=== PATIENT | male | born 1985 | race Caucasian/White ===

== ENCOUNTER 2016-09-12 02:01 | Emergency (ER) | payer OTHER ==
[2016-09-12 02:25] VITALS: BP 159/106
--- NOTE | 2016-09-15 09:57 | EDM.PDOC ---
ED HPI GENERAL MEDICAL PROBLEM - General Chief Complaint: General Stated Complaint: DIARRHEA Time Seen by Provider: 09/12/16 02:40 Source of Information: Reports: Patient History Limitations: Reports: No Limitations - History of Present Illness INITIAL COMMENTS - FREE TEXT/NARRATIVE: This is a 31yo M here for abdominal discomfort. He states this issue has been ongoing for months and maybe longer than a year. He states the pain is worse when he eats certain foods. He does notice that fatty foods do make the symptoms worse. He states he has had a prior workup 3 years ago but was not told of any findings so he assumed things were ok. He denies any fever or other issues. He has had a prior episode of jaundice after given pain medications from a previous hospital stay but he did not come in and when he stopped his opiods his jaundice resolved. Onset: Sudden Duration: Hour(s):, Colic Location: Reports: Abdomen Severity: Moderate Improves with: Reports: None Worsens with: Reports: None Associated Symptoms: Reports: Loss of Appetite Abdominal Pain Score (Numeric/FACES): 4 - Related Data Allergies Allergy/AdvReac Type Severity Reaction Status Date / Time No Known Allergies Allergy Verified 01/31/16 05:48 Home Meds: Home Meds NK [No Known Home Meds] 01/31/16 [History] Past Medical History HEENT History: Reports: Impaired Vision Psychiatric History: Reports: Anxiety Endocrine/Metabolic History: Reports: Other (See Below) Other Endocrine/Metabolic History: non-alcohol fatty liver Dx. - Infectious Disease History Infectious Disease History: Reports: Chicken Pox - Past Surgical History Respiratory Surgical History: Reports: Other (See Below) Male Surgical History: Reports: Kidney Stone Extraction, Lithotripsy (ESWL) Social & Family History - Family History Family Medical History: Noncontributory - Tobacco Use Smoking Status *Q: Current Every Day Smoker Years of Tobacco use: 8 Packs/Tins Daily: 0.5 Used Tobacco, but Quit: No Second Hand Smoke Exposure: No - Caffeine Use Caffeine Use: Reports: Energy Drinks - Recreational Drug Use Recreational Drug Use: No ED ROS GENERAL - Review of Systems Review Of Systems: ROS reveals no pertinent complaints other than HPI. ED EXAM, GI/ABD - Physical Exam Exam: See Below Exam Limited By: No Limitations General Appearance: Alert, WD/WN, Mild Distress Eyes: Bilateral: EOMI Ears: Normal External Exam Nose: Normal Inspection Throat/Mouth: Normal Inspection Head: Atraumatic Neck: Normal Inspection Respiratory/Chest: No Respiratory Distress, Lungs Clear, Normal Breath Sounds Cardiovascular: Normal Peripheral Pulses, Regular Rate, Rhythm GI/Abdominal Exam: Normal Bowel Sounds, Soft, Tender (RUQ) Back Exam: Normal Inspection Extremities: Normal Inspection Neurological: Alert, Oriented, CN II-XII Intact Psychiatric: Normal Affect, Normal Mood Skin Exam: Warm, Dry, Intact Course - Vital Signs Last Recorded V/S: Last Vital Signs Temp 36.6 C 09/12/16 02:28 Pulse 90 09/12/16 02:28 Resp 16 09/12/16 02:28 BP 159/106 H 09/12/16 02:28 Pulse Ox 98 09/12/16 02:28 Departure - Departure Time of Disposition: 03:30 Disposition: Home, Self-Care 01 Condition: Good Clinical Impression: Cholecystitis - Discharge Information Instructions: Cholecystitis, [id number] Referrals: PCP,None [Primary Care Provider] - Forms: ED Department Discharge Additional Instructions: Eat a low fat diet, as tolerated, with plenty of fresh fruits and vegetables. Follow up with regular provider as directed. Call with any questions. - Problem List Review Problem List Initiated/Reviewed/Updated: Yes - Assessment/Plan Plan: Counseled patient on the need for further workup and studies. Patient understands the need and will f/u per patient and . They have decided to f/ u at [facility] for workup. Discussed if any changes to come to clinic any time for scheduling of Cholecystitis workup.
== END 2016-09-12 03:20 | disposition home or self-care (01) ==
LOC: LB.ED 02:01
DX: K81.9 Cholecystitis, unspecified (principal); H54.7 Unspecified visual loss; F17.210 Nicotine dependence, cigarettes, uncomplicated
CPT/HCPCS: 99283

== ENCOUNTER 2017-01-24 14:25 | Emergency (ER) | payer OTHER ==
[2017-01-24] MEDS ORDERED: Ketorolac 10 MG Tab ONE ×2 (15:20→16:33)
[2017-01-24] MEDS ORDERED: Acetaminophen/HYDROcodone 325-5 MG Tab ONE (15:20)
[2017-01-24] MEDS ORDERED: Ketorolac 30 MG/ML SDV ONE ×2 (15:25→15:27)
[2017-01-24] MEDS ORDERED: HYDROmorphone 2 MG/ML Syringe ONE ×2 (15:25→15:28)
--- NOTE | 2017-01-24 15:39 | EDM.PDOC ---
ED HPI GENERAL MEDICAL PROBLEM - General Stated Complaint: poss. kidney stone Time Seen by Provider: 01/24/17 15:00 Source of Information: Reports: Patient History Limitations: Reports: No Limitations - History of Present Illness INITIAL COMMENTS - FREE TEXT/NARRATIVE: According to patient he claims he has been having sudden onset of lower abdomen pain since afternoon today. Pt claims that pain radiates into his groin and testicles. Rates his pain 9/10 which is waxing and waning type and does feel dizzy when the pain gets intense. He has had kidney stones when he was in service several years ago. No fever or chills. He has been urinating frequently and feels an urge to urinate all the time. no nausea or vomiting. No abdominal distension. no diarrhea. no heart sierra. No diarrhea. Onset: Today Onset Date: 01/24/17 Onset Time: 12:00 Duration: Getting Worse, Waxing/Waning Location: Reports: Abdomen Severity: Severe Improves with: Reports: None Worsens with: Reports: None Associated Symptoms: Denies: Confusion, Chest Pain, Cough, Fever/Chills, Nausea/ Vomiting, Rash, Seizure, Shortness of Breath, Syncope, Weakness - Related Data Allergies Allergy/AdvReac Type Severity Reaction Status Date / Time No Known Allergies Allergy Verified 01/31/16 05:48 Home Meds: Home Meds NK [No Known Home Meds] 01/31/16 [History] Past Medical History HEENT History: Reports: Impaired Vision Psychiatric History: Reports: Anxiety Endocrine/Metabolic History: Reports: Other (See Below) Other Endocrine/Metabolic History: non-alcohol fatty liver Dx. - Infectious Disease History Infectious Disease History: Reports: Chicken Pox - Past Surgical History Respiratory Surgical History: Reports: Other (See Below) Male Surgical History: Reports: Kidney Stone Extraction, Lithotripsy (ESWL) Social & Family History - Family History Family Medical History: Noncontributory - Tobacco Use Smoking Status *Q: Current Every Day Smoker Years of Tobacco use: 8 Packs/Tins Daily: 0.5 Used Tobacco, but Quit: No Second Hand Smoke Exposure: No - Caffeine Use Caffeine Use: Reports: Energy Drinks - Recreational Drug Use Recreational Drug Use: No ED ROS GENERAL - Review of Systems Review Of Systems: See Below Constitutional: Denies: Fever, Chills, Malaise, Weakness HEENT: Denies: Eye Discharge, Rhinitis, Throat Pain, Throat Swelling Respiratory: Denies: Shortness of Breath, Wheezing, Pleuritic Chest Pain, Cough , Sputum Cardiovascular: Denies: Chest Pain, Lightheadedness Endocrine: Denies: Fatigue GI/Abdominal: Reports: Abdominal Pain. Denies: Constipation, Diarrhea, Nausea, Vomiting : Reports: Frequency, Urgency. Denies: Discharge, Dysuria, Flank Pain, Hematuria Musculoskeletal: Denies: Neck Pain, Shoulder Pain, Joint Pain, Joint Swelling Skin: Denies: Pruritis, Rash ED EXAM, GENERAL - Physical Exam Exam: See Below Exam Limited By: No Limitations General Appearance: Alert, WD/WN, Severe Distress Eye Exam: Bilateral Eye: EOMI, PERRL Ears: Normal External Exam, Normal Canal, Hearing Grossly Normal, Normal TMs Ear Exam: Bilateral Ear: Auricle Normal, Canal Normal, TM normal Nose: Normal Inspection, Normal Mucosa, No Blood Throat/Mouth: Normal Inspection, Normal Lips, Normal Teeth, Normal Gums, Normal Oropharynx, Normal Voice, No Airway Compromise Head: Atraumatic, Normocephalic Neck: Normal Inspection, Supple, Non-Tender, Full Range of Motion Respiratory/Chest: No Respiratory Distress, Lungs Clear, Normal Breath Sounds, No Accessory Muscle Use, Chest Non-Tender Cardiovascular: Normal Peripheral Pulses, Regular Rate, Rhythm, No Edema, No Gallop, No JVD, No Murmur, No Rub GI/Abdominal: Normal Bowel Sounds, Soft, No Organomegaly, No Distention, No Abnormal Bruit, No Mass, Tender (suprpubic) (Male) Exam: Normal Inspection, Normal Prostate, Suprapubic Fullness Back Exam: No: CVA Tenderness (R), CVA Tenderness (L), Paraspinal Tenderness, Vertebral Tenderness Course - Vital Signs Text/Narrative:: Pt is in acute distress form pain. Rates his pain at 9/10. His history and presentation is consistent with Passing ureteric stone. Pain in his testicles is consistent with a passing stone. Pt did receive dilaudid 1mg and toradol 30mg IM. His pain did improve. he was sent down to have CT KUB , which does show a small right 2-3 mm stone . Pt reassured that he has a small passing stone , which should pass without any complication within next few hrs. Pt was advised to drink plenty of water and fluids. Alternate vicodin with toradol 10mg every 4 hrs. Strain the urine. To prevent future stone formation continue to drink 7376-7127 cc fluids daily. - Orders/Labs/Meds Orders: Active Orders 24 hr Category Date Time Status Kidney Stone Protocol [CT] Stat Exams 01/24/17 15:27 Taken UA W/MICROSCOPIC [URIN] Stat Lab 01/24/17 15:27 Ordered Labs: Laboratory Tests 01/24/17 01/24/17 Range/Units 15:27 15:30 WBC 8.7 (4.0-11.0) K/uL RBC 4.96 (4.50-6.50) M/uL Hgb 15.4 (13.0-18.0) g/dL Hct 42.0 (40.0-54.0) % MCV 85 (76-96) fL MCH 31.0 (27.0-32.0) pg MCHC 36.7 H (31.0-35.0) g/dL RDW 12.5 (11.0-16.0) % Plt Count 202 (150-400) K/uL MPV 10.3 H (6.0-10.0) fL Neut % (Auto) 58.3 (45.0-70.0) % Lymph % (Auto) 22.6 (20.0-40.0) % [place] % (Auto) 10.5 H (3.0-10.0) % Eos % (Auto) 8.5 H (1.0-5.0) % Baso % (Auto) 0.1 (0.0-0.5) % Neut # (Auto) 5.07 (2.00-7.50) K/uL Lymph # (Auto) 1.97 (1.50-4.00) K/uL [place] # (Auto) 0.91 H (0.20-0.80) K/uL Eos # (Auto) 0.74 H (0.04-0.40) K/uL Baso # (Auto) 0.01 L (0.02-0.10) K/uL Sodium 140 (136-145) mmol/L Potassium 4.1 (3.5-5.1) mmol/L Chloride 104 (98-107) mmol/L Carbon Dioxide 24.5 (21.0-32.0) mmol/L Anion Gap 15.6 H (5.0-15.0) mmol/L BUN 9 D (8-26) mg/dL Creatinine 1.13 (0.70-1.30) mg/dL Est Cr Clr Drug Dosing TNP Estimated GFR (MDRD) > 60 (>60) MLS/MIN BUN/Creatinine Ratio 8.0 (6-25) Glucose 129 H (74-100) mg/dL Calcium 9.3 (8.5-10.1) mg/dL Total Bilirubin 1.3 H D (0.0-1.0) mg/dL AST 45 H (15-37) U/L ALT 111 H (12-78) U/L Alkaline Phosphatase 90 (46-116) U/L Total Protein 8.0 (6.4-8.2) g/dL Albumin 4.0 (3.4-5.0) g/dL Globulin 4.0 (2.2-4.2) g/dL Albumin/Globulin Ratio 1.0 (0.8-2.0) Meds: Medications Discontinued Medications Generic Name Dose Route Start Last Admin Trade Name Freq PRN Reason Stop Dose Admin Hydromorphone HCl Confirm 01/24/17 15:28 Dilaudid Administered 01/24/17 15:29 Dose 2 mg .ROUTE .STK-MED ONE Ketorolac Tromethamine Confirm 01/24/17 15:27 Toradol Administered 01/24/17 15:28 Dose 30 mg .ROUTE .STK-MED ONE Ketorolac Tromethamine Confirm 01/24/17 16:33 Toradol Administered 01/24/17 16:34 Dose 60 mg .ROUTE .STK-MED ONE Departure - Departure Time of Disposition: 16:00 Disposition: Home, Self-Care 01 Condition: Good Clinical Impression: Ureteric colic - Discharge Information Referrals: PCP,None [Primary Care Provider] - - Problem List & Annotations (1) Ureteric colic SNOMED Code(s): 00135190 Code(s): N23 - UNSPECIFIED RENAL COLIC Status: Acute Current Visit: Yes - Problem List Review Problem List Initiated/Reviewed/Updated: Yes - My Orders Last 24 Hours: My Active Orders 01/24/17 15:27 Kidney Stone Protocol [CT] Stat UA W/MICROSCOPIC [URIN] Stat - Assessment/Plan Last 24 Hours: My Active Orders 01/24/17 15:27 Kidney Stone Protocol [CT] Stat UA W/MICROSCOPIC [URIN] Stat Assessment:: right ureteric colic Plan: Pt is in acute distress form pain. Rates his pain at 9/10. His history and presentation is consistent with Passing ureteric stone. Pain in his testicles is consistent with a passing stone. Pt did receive dilaudid 1mg and toradol 30mg IM. His pain did improve. he was sent down to have CT KUB , which does show a small right 2-3 mm stone . Pt reassured that he has a small passing stone , which should pass without any complication within next few hrs. Pt was advised to drink plenty of water and fluids. Alternate vicodin with toradol 10mg every 4 hrs. Strain the urine. To prevent future stone formation continue to drink [id number] cc fluids daily.
--- NOTE | 2017-01-25 23:18 | CT ---
DATE OF SERVICE: 01/24/2017 CLINICAL DATA: Abdominal pain. UNENHANCED ABDOMEN AND PELVIC CT: Multislice acquisition through the abdomen and pelvis without IV or oral contrast was performed. No priors. The lung bases are clear. There is diffuse fatty infiltration of the liver. No focal hepatic lesions. The gallbladder appears normal. No calcified gallstones. The spleen appears normal. The pancreas appears normal. The right and left adrenals appear normal. There is a 2 mm nonobstructing renal calculi on the right. There is a 2 mm distal ureteral calculi on the right located at the ureterovesical junction. There is mild hydroureter proximal to it consistent with partial obstruction. The kidneys and collecting systems otherwise appear normal. The bladder is otherwise unremarkable. The appendix is not dilated. No evidence of appendicitis. No free air. No free fluid. No dilated loops of bowel. No adenopathy. No aortic aneurysm. There is an umbilical hernia containing fat. There are bilateral inguinal hernias containing fat. IMPRESSION: 2 mm distal ureteral calculi on right at ureterovesical junction with obstruction. Other findings as discussed above. 01[facility]/2017 [facility]
== END 2017-01-24 16:40 | disposition home or self-care (01) ==
LOC: LB.ED 14:25
DX: N20.1 Calculus of ureter (principal); F17.210 Nicotine dependence, cigarettes, uncomplicated
CPT/HCPCS: 36415; 74176; 80053; 81001; 85025; 96372; 99284; A9270; J1170; J1885

== ENCOUNTER 2017-10-17 04:33 | Emergency (ER) | payer OTHER ==
[2017-10-17] MEDS ORDERED: Tamsulosin 0.4 MG Cap.ER ONE (04:40)
[2017-10-17] MEDS ORDERED: Acetaminophen/oxyCODONE 325-5 MG Tab ONE (04:40)
[2017-10-17] MEDS: Acetaminophen/oxyCODONE 325-5 MG Tab PO ONE (04:45)
[2017-10-17 04:50] VITALS: BP 155/114
[2017-10-17] MEDS: Acetaminophen/HYDROcodone 325-10 MG Tab PO ONE (05:30)
[2017-10-17] MEDS: Ketorolac 60 MG/2 ML SDV IM ONE (05:46)
--- NOTE | 2017-10-19 08:48 | CT ---
DATE OF SERVICE: 10/17/17 CLINICAL DATA: pain UNENHANCED ABDOMEN AND PELVIC CT: Multislice acquisition through the abdomen and pelvis without IV or oral contrast was performed. Comparison is made to a prior exam dated 01/24/17. The lung bases are clear. There is mild mural thickening within the distal esophagus. Esophagitis should be considered. There is diffuse fatty infiltration of the liver. No focal hepatic lesions. The gallbladder appears normal. The spleen appears normal. The pancreas appears normal. The right and left adrenals appear normal. There is a 1 mm distal ureteral calculi on the right located at the ureterovesical junction. There is mild hydronephrosis and hydroureter proximal to it. The kidneys and collecting systems are otherwise unremarkable bilaterally. There is a small amount of fluid within the bladder. It appears grossly normal. The prostate is mildly enlarged. The appendix is not dilated. No evidence of appendicitis. No free air. No free fluid. No dilated loops of bowel. No adenopathy. No aortic aneurysm. There is an umbilical hernia containing fat. There are bilateral inguinal hernias containing fat. IMPRESSION: 1. 1 mm distal ureteral calculi on right at ureterovesical junction with mild hydronephrosis and hydroureter proximally. 2. Other findings as discussed above. [id number] [facility]
== END 2017-10-17 05:30 | disposition home or self-care (01) ==
LOC: LB.ED 04:33
DX: N13.2 Hydronephrosis with renal and ureteral calculous obstruction (principal)
CPT/HCPCS: 74176; 81001; 87086; 96372; 99283; 99284-25; A9270-GY; J1885

== ENCOUNTER 2019-08-27 02:57 | Inpatient (IN) | payer OTHER ==
--- NOTE | 2019-08-27 04:56 | EDM.PDOC ---
ED HPI GENERAL MEDICAL PROBLEM - General Chief Complaint: Genitourinary Problem Stated Complaint: frequent urination Time Seen by Provider: 08/27/19 04:30 Source of Information: Reports: Patient History Limitations: Reports: No Limitations - History of Present Illness INITIAL COMMENTS - FREE TEXT/NARRATIVE: pt presents to the ER accompanied by significant other. pt states weight loss of about 30lb over the last few months, polyuria, polydipsia, blurry vision, abdominal fullness. pt states history of kidney stones and the abdominal fullness feeling is similar, he states "it feels like my kidneys are sore, but not necessarily flank pain like I had with the kidney stones in the past" also history of "prediabetes" from [place], last visit from [place] was over a year ago, coinciding intermittent nausea. pt denies fever, chills, pain. Bilateral Lower Flank Pain Score (Numeric/FACES): 3 - Related Data Allergies Allergy/AdvReac Type Severity Reaction Status Date / Time No Known Allergies Allergy Verified 10/17/17 04:50 Home Meds: Home Meds NK [No Known Home Meds] 01/31/16 [History] Past Medical History HEENT History: Reports: Impaired Vision Genitourinary History: Reports: Renal Calculus Psychiatric History: Reports: Anxiety Endocrine/Metabolic History: Reports: Other (See Below) Other Endocrine/Metabolic History: non-alcohol fatty liver Dx. - Infectious Disease History Infectious Disease History: Reports: Chicken Pox - Past Surgical History Respiratory Surgical History: Reports: Other (See Below) GI Surgical History: Reports: Other (See Below) Male Surgical History: Reports: Kidney Stone Extraction, Lithotripsy (ESWL) Social & Family History - Family History Family Medical History: Noncontributory - Caffeine Use Caffeine Use: Reports: Energy Drinks ED ROS GENERAL - Review of Systems Review Of Systems: Comprehensive ROS is negative, except as noted in HPI. ED EXAM, GENERAL - Physical Exam Exam: See Below Exam Limited By: No Limitations General Appearance: Alert, WD/WN, No Apparent Distress Eye Exam: Bilateral Eye: EOMI, PERRL Nose: Normal Inspection Throat/Mouth: Normal Inspection, Normal Teeth, Normal Oropharynx Head: Atraumatic, Normocephalic Neck: Normal Inspection Respiratory/Chest: No Respiratory Distress, Lungs Clear, Normal Breath Sounds Cardiovascular: Normal Peripheral Pulses, No Edema, No Murmur, Tachycardia, Systolic Murmur Peripheral Pulses: 2+: Femoral (L), Femoral (R), Posterior Tibial (L), Posterior Tibial (R) GI/Abdominal: Normal Bowel Sounds, Soft, Tender (some LUQ ttp) Back Exam: Normal Inspection, Full Range of Motion Extremities: Non-Tender, No Pedal Edema Neurological: Alert, Oriented, CN II-XII Intact, Normal Cognition, Normal Gait Psychiatric: Normal Affect, Normal Mood Skin Exam: Warm, Dry, Intact Course - Vital Signs Last Recorded V/S: Last Vital Signs Temp 97.2 F 08/27/19 07:45 Pulse 104 H 08/27/19 07:45 Resp 18 08/27/19 07:45 BP 139/102 H 08/27/19 07:45 Pulse Ox 99 08/27/19 07:45 - Orders/Labs/Meds Orders: Active Orders 24 hr Category Date Time Status POC Glucose [Blood Glucose Check, Bedside] [] Care 08/27/19 06:01 Active INTERMITTENT Sodium Chloride 0.9% [Normal Saline] 1,000 ml Med 08/27/19 07:27 Ordered IV .BOLUS Sodium Chloride 0.9% [Saline Flush] Med 08/27/19 06:00 Active 10 ml FLUSH ASDIRECTED PRN Peripheral IV Insertion Adult [OM.PC] Routine Oth 08/27/19 06:00 Ordered Medication Orders Sodium Chloride (Normal Saline) 1,000 mls @ 999 mls/hr IV .BOLUS ONE Stop: 08/27/19 08:27 Last Admin: 08/27/19 07:36 Dose: Not Given Documented by: CASEY Sodium Chloride (Saline Flush) 10 ml FLUSH ASDIRECTED PRN PRN Reason: Keep Vein Open Labs: Laboratory Tests 08/27/19 08/27/19 08/27/19 Range/Units 05:09 05:09 05:09 WBC 15.0 H D (4.0-11.0) K/uL RBC 5.12 (4.50-6.50) M/uL Hgb 19.0 H* (13.0-18.0) g/dL Hct 44.4 (40.0-54.0) % MCV 87 (76-96) fL MCH 37.1 H (27.0-32.0) pg MCHC 42.8 H (31.0-35.0) g/dL RDW 12.4 (11.0-16.0) % Plt Count 262 (150-400) K/uL MPV 11.2 H (6.0-10.0) fL Add Manual Diff Yes Neutrophils % (Manual) 67.0 (45.0-70.0) % Lymphocytes % (Manual) 28.0 (20.0-40.0) % Monocytes % (Manual) 3.0 (3.0-10.0) % Eosinophils % (Manual) 2.0 (1.0-5.0) % Platelet Estimate Adequate VBG pH (7.31-7.41) VBG pCO2 (41-51) mm/Hg VBG pO2 (30-50) mm/Hg VBG HCO3 (23.0-28.0) mmol/L VBG O2 Saturation (60-85) % VBG Base Excess (-2-3) mm/L O2 Delivery Device Sodium 122 L (136-145) mmol/L Potassium 4.4 (3.5-5.1) mmol/L Chloride 88 L* (98-107) mmol/L Carbon Dioxide 16.0 L D (21.0-32.0) mmol/L Anion Gap 22.4 H (5.0-15.0) mmol/L BUN 16 D (8-26) mg/dL Creatinine Not Reportable Est Cr Clr Drug Dosing Not Reportable Estimated GFR (MDRD) Not Reportable BUN/Creatinine Ratio Not Reportable Glucose 543 H* D (74-100) mg/dL POC Glucose (74-110) mg/dL Hemoglobin A1c 10.2 H (< 5.7) % Calcium Not Reportable Total Bilirubin 2.2 H D (0.0-1.0) mg/dL AST Not Reportable ALT Not Reportable Alkaline Phosphatase 167 H (46-116) U/L Total Protein Not Reportable Albumin 3.5 (3.4-5.0) g/dL Globulin Not Reportable Albumin/Globulin Ratio Not Reportable Lipase (73-393) U/L Urine Color Urine Appearance (CLEAR) Urine pH (5.0-8.0) Ur Specific [place] (1.003-1.030) Urine Protein (NEGATIVE) mg/dL Urine Glucose (UA) (NEGATIVE) mg/dL Urine Ketones (NEGATIVE) mg/dL Urine Occult Blood (NEGATIVE) Urine Nitrite (NEGATIVE) Urine Bilirubin (NEGATIVE) Urine Urobilinogen (0.2-1.0) E.U./dL Ur Leukocyte Esterase (NEGATIVE) Urine RBC /HPF Urine WBC /HPF 08/27/19 08/27/19 08/27/19 Range/Units 05:09 05:10 05:37 WBC (4.0-11.0) K/uL RBC (4.50-6.50) M/uL Hgb (13.0-18.0) g/dL Hct (40.0-54.0) % MCV (76-96) fL MCH (27.0-32.0) pg MCHC (31.0-35.0) g/dL RDW (11.0-16.0) % Plt Count (150-400) K/uL MPV (6.0-10.0) fL Add Manual Diff Neutrophils % (Manual) (45.0-70.0) % Lymphocytes % (Manual) (20.0-40.0) % Monocytes % (Manual) (3.0-10.0) % Eosinophils % (Manual) (1.0-5.0) % Platelet Estimate VBG pH (7.31-7.41) VBG pCO2 (41-51) mm/Hg VBG pO2 (30-50) mm/Hg VBG HCO3 (23.0-28.0) mmol/L VBG O2 Saturation (60-85) % VBG Base Excess (-2-3) mm/L O2 Delivery Device Sodium (136-145) mmol/L Potassium (3.5-5.1) mmol/L Chloride (98-107) mmol/L Carbon Dioxide (21.0-32.0) mmol/L Anion Gap (5.0-15.0) mmol/L BUN (8-26) mg/dL Creatinine Est Cr Clr Drug Dosing Estimated GFR (MDRD) BUN/Creatinine Ratio Glucose (74-100) mg/dL POC Glucose 352 H (74-110) mg/dL Hemoglobin A1c (< 5.7) % Calcium Total Bilirubin (0.0-1.0) mg/dL AST ALT Alkaline Phosphatase (46-116) U/L Total Protein Albumin (3.4-5.0) g/dL Globulin Albumin/Globulin Ratio Lipase 337 (73-393) U/L Urine Color Yellow Urine Appearance Clear (CLEAR) Urine pH 5.0 (5.0-8.0) Ur Specific [place] 1.025 (1.003-1.030) Urine Protein 100 H (NEGATIVE) mg/dL Urine Glucose (UA) 500 H (NEGATIVE) mg/dL Urine Ketones 80 H (NEGATIVE) mg/dL Urine Occult Blood Trace-lysed H (NEGATIVE) Urine Nitrite Negative (NEGATIVE) Urine Bilirubin Small H (NEGATIVE) Urine Urobilinogen 0.2 (0.2-1.0) E.U./dL Ur Leukocyte Esterase Negative (NEGATIVE) Urine RBC Not seen /HPF Urine WBC Not seen /HPF 08/27/19 08/27/19 Range/Units 06:27 06:55 WBC (4.0-11.0) K/uL RBC (4.50-6.50) M/uL Hgb (13.0-18.0) g/dL Hct (40.0-54.0) % MCV (76-96) fL MCH (27.0-32.0) pg MCHC (31.0-35.0) g/dL RDW (11.0-16.0) % Plt Count (150-400) K/uL MPV (6.0-10.0) fL Add Manual Diff Neutrophils % (Manual) (45.0-70.0) % Lymphocytes % (Manual) (20.0-40.0) % Monocytes % (Manual) (3.0-10.0) % Eosinophils % (Manual) (1.0-5.0) % Platelet Estimate VBG pH 7.30 L (7.31-7.41) VBG pCO2 28.6 L (41-51) mm/Hg VBG pO2 47 (30-50) mm/Hg VBG HCO3 14.2 L (23.0-28.0) mmol/L VBG O2 Saturation 79 (60-85) % VBG Base Excess -12 L (-2-3) mm/L O2 Delivery Device Room air Sodium (136-145) mmol/L Potassium (3.5-5.1) mmol/L Chloride (98-107) mmol/L Carbon Dioxide (21.0-32.0) mmol/L Anion Gap (5.0-15.0) mmol/L BUN (8-26) mg/dL Creatinine Est Cr Clr Drug Dosing Estimated GFR (MDRD) BUN/Creatinine Ratio Glucose (74-100) mg/dL POC Glucose 282 H (74-110) mg/dL Hemoglobin A1c (< 5.7) % Calcium Total Bilirubin (0.0-1.0) mg/dL AST ALT Alkaline Phosphatase (46-116) U/L Total Protein Albumin (3.4-5.0) g/dL Globulin Albumin/Globulin Ratio Lipase (73-393) U/L Urine Color Urine Appearance (CLEAR) Urine pH (5.0-8.0) Ur Specific [place] (1.003-1.030) Urine Protein (NEGATIVE) mg/dL Urine Glucose (UA) (NEGATIVE) mg/dL Urine Ketones (NEGATIVE) mg/dL Urine Occult Blood (NEGATIVE) Urine Nitrite (NEGATIVE) Urine Bilirubin (NEGATIVE) Urine Urobilinogen (0.2-1.0) E.U./dL Ur Leukocyte Esterase (NEGATIVE) Urine RBC /HPF Urine WBC /HPF Meds: Medications Generic Name Dose Route Start Last Admin Trade Name Freq PRN Reason Stop Dose Admin Sodium Chloride 1,000 mls @ 999 mls/hr 08/27/19 07:27 08/27/19 07:36 Normal Saline IV 08/27/19 08:27 Not Given .BOLUS ONE Sodium Chloride 10 ml 08/27/19 06:00 Saline Flush FLUSH ASDIRECTED PRN Keep Vein Open Discontinued Medications Generic Name Dose Route Start Last Admin Trade Name Freq PRN Reason Stop Dose Admin Sodium Chloride 1,000 mls @ 1,000 mls/hr 08/27/19 06:00 08/27/19 07:13 Normal Saline IV 08/27/19 06:59 1,000 mls/hr .BOLUS ONE Administration Insulin Human Regular 10 unit 08/27/19 06:01 08/27/19 06:16 Humulin R IV 08/27/19 06:02 10 units ONETIME ONE Administration Departure - Departure Time of Disposition: 07:30 Disposition: DC/[facility] to [facility] Condition: Good Clinical Impression: DKA (diabetic ketoacidoses) - Discharge Information *PRESCRIPTION DRUG MONITORING PROGRAM REVIEWED*: Not Applicable *COPY OF PRESCRIPTION DRUG MONITORING REPORT IN PATIENT NICK: Not Applicable Forms: ED Department Discharge Critical Care Note - Critical Care Note Total Time (mins): 45 Comments: 45 minutes of critical care time were spent with this pt monitoring vital signs, providing direct bedside care and orders. Sepsis Event Note (ED) - Evaluation Sepsis Screening Result: No Definite Risk - Focused Exam Vital Signs: Vital Signs Temp Pulse Resp BP Pulse Ox 08/27/19 07:45 97.2 F 104 H 18 139/102 H 99 08/27/19 06:30 97.8 F 110 H 18 139/99 H 97 08/27/19 04:59 125 H 18 98 08/27/19 04:33 97 F 120 H 18 140/106 H 98 - Problem List & Annotations (1) DKA (diabetic ketoacidoses) SNOMED Code(s): 427357475, 413989250 Code(s): E11.10 - TYPE 2 DIABETES MELLITUS WITH KETOACIDOSIS WITHOUT COMA Status: Acute Current Visit: Yes Qualifiers: Diabetes mellitus type: type 2 Diabetes mellitus complication detail: without coma Qualified Code(s): E11.10 - Type 2 diabetes mellitus with ketoacidosis without coma - Problem List Review Problem List Initiated/Reviewed/Updated: Yes - My Orders Last 24 Hours: My Active Orders 08/27/19 06:00 Sodium Chloride 0.9% [Saline Flush] 10 ml FLUSH ASDIRECTED PRN Peripheral IV Insertion Adult [OM.PC] Routine 08/27/19 06:01 POC Glucose [Blood Glucose Check, Bedside] [RC] INTERMITTENT 08/27/19 07:27 Sodium Chloride 0.9% [Normal Saline] 1,000 ml IV .BOLUS - Assessment/Plan Last 24 Hours: My Active Orders 08/27/19 06:00 Sodium Chloride 0.9% [Saline Flush] 10 ml FLUSH ASDIRECTED PRN Peripheral IV Insertion Adult [OM.PC] Routine 08/27/19 06:01 POC Glucose [Blood Glucose Check, Bedside] [RC] INTERMITTENT 08/27/19 07:27 Sodium Chloride 0.9% [Normal Saline] 1,000 ml IV .BOLUS Assessment:: assessment: DKA plan: transfer to [facility] where pt has received care in the past. IV fluids and blood sugar checks in ambulance during pt's ED course he was provided 2L NS bolused with 10u regular insulin IV, his blood sugars dropped from initial 543 to 352 at 30min post insulin and 282 about 90min post insulin. VBG returned at pH 7.303 and bicarb of 16 with anion gap of 22.4. pt remained awake, alert, and in relatively good spirits during thi s time. he will be transferred via EMS to [facility] in [place], accepting physician Dr. Lopez.
[2019-08-27 05:49] LABS: HEMOGLOBIN A1C 10.2 % (< 5.7)
[2019-08-27] MEDS ORDERED: Sodium Chloride 0.9% 10 ML Syringe FLUSH PRN (06:00)
[2019-08-27] MEDS ORDERED: Insulin Regular, Human 100 Units/ML 3 ML Vial IV ONE (06:01)
[2019-08-27] MEDS: Sodium Chloride 0.9% 1,000 ML IV ONE ×2 (06:14→07:13)
[2019-08-27] MEDS ORDERED: Sodium Chloride 0.9% 1,000 ML IV ONE (07:27)
[2019-08-27] MEDS ORDERED: Sodium Chloride 0.9% 1,000 ML IV SCH (08:15)
[2019-08-27] MEDS ORDERED: Ketorolac 60 MG/2 ML SDV IVPUSH ONE (09:27)
[2019-08-27] MEDS ORDERED: Ketorolac 30 MG/ML SDV ONE (09:36)
[2019-08-27] MEDS ORDERED: Sodium Chloride 0.9% 2,000 ML IV PRN (10:27)
[2019-08-27] MEDS ORDERED: 50% Dextrose in Water 50 ML Syringe IVPUSH ONE (10:27)
[2019-08-27] MEDS ORDERED: Potassium Chloride 10% 20 MEQ/15 ML Soln 15 ML UD Cup PO PRN (10:27)
[2019-08-27] MEDS ORDERED: Sodium Phosphate 60 MMOLE in Sodium Chloride 0.9% 250 ML IV PRN (10:27)
[2019-08-27] MEDS ORDERED: Nicotine 21 MG/24 Hr Patch TRDERM SCH (10:30)
[2019-08-27] MEDS ORDERED: Acetaminophen 325 MG Tab PO PRN (10:56)
[2019-08-27] MEDS ORDERED: Melatonin 3 MG Tab PO PRN (10:56)
[2019-08-27] MEDS ORDERED: Ondansetron 4 MG Tab.DIS PO PRN (10:56)
--- NOTE | 2019-08-27 11:07 | PCM.HP.2 ---
H&P History of Present Illness - General Date of Service: 08/27/19 Admit Problem/Dx: Admission Diagnosis/Problem Admission Diagnosis/Problem Diabetic ketoacidosis Source of Information: Patient History Limitations: Reports: No Limitations - History of Present Illness Initial Comments - Free Text/Narative: This is a 34-year-old gentleman with a past medical history significant for hypertension and posttraumatic stress disorder who presented to the emergency department today with complaints of polydipsia, polyuria and generalized feelings of malaise. Patient states that the symptoms have been increasingly worse since August 13, 2019. He was told a couple of years ago that he had prediabetes. He has had no acute events. Generally speaking he has been getting up many times at night to go to the bathroom. He notes no fevers chills. He has had some intermittent nausea but no vomiting. He was found to have a blood sugar in the 530 range upon initial evaluation. He was given 10 units of insulin and his blood sugars drops into the 300s. Lab noted a high concentration of lipids on his BMP. VBG revealed a pH of 7.3, bicarb 16. Patient was admitted for treatment of new onset diabetes and diabetic ketoacidosis. Onset of Symptoms: Reports: Gradual Bilateral Lower Flank Pain Score (Numeric/FACES): 3 - Related Data Allergies/Adverse Reactions: Allergies Allergy/AdvReac Type Severity Reaction Status Date / Time No Known Allergies Allergy Verified 10/17/17 04:50 Home Medications: Home Meds NK [No Known Home Meds] 01/31/16 [History] Past Medical History HEENT History: Reports: Impaired Vision Cardiovascular History: Reports: Hypertension Genitourinary History: Reports: Renal Calculus Psychiatric History: Reports: Anxiety, Depression, PTSD Other Psychiatric History: PTSD Endocrine/Metabolic History: Reports: Other (See Below) Other Endocrine/Metabolic History: non-alcohol fatty liver Dx. - Infectious Disease History Infectious Disease History: Reports: Chicken Pox - Past Surgical History Respiratory Surgical History: Reports: Other (See Below) GI Surgical History: Reports: Other (See Below) Male Surgical History: Reports: Kidney Stone Extraction, Lithotripsy (ESWL) Social & Family History - Family History Family Medical History: Noncontributory - Tobacco Use Smoking Status *Q: Current Every Day Smoker Tobacco Use Within Last Twelve Months: Cigarettes Years of Tobacco use: 12 Packs/Tins Daily: 1 - Caffeine Use Caffeine Use: Reports: Energy Drinks - Alcohol Use Alcohol Use History: No - Recreational Drug Use Recreational Drug Use: Yes Recreational Drug Type: Reports: Marijuana/Hashish - Living Situation & Occupation Living situation: Reports: Occupation: Employed H&P Review of Systems - Review of Systems: Review Of Systems: Comprehensive ROS is negative, except as noted in HPI. Exam - Exam Exam: See Below - Vital Signs Vital Signs: Last Vital Signs Temp 36.2 C 08/27/19 07:45 Pulse 104 H 08/27/19 07:45 Resp 18 08/27/19 07:45 BP 139/102 H 08/27/19 07:45 Pulse Ox 99 08/27/19 07:45 Weight: 124.369 kg - Exam General: Alert, Oriented, 4 HEENT: Posterior Pharynx Clear, Other (Facial symmetry normal) Lungs: Clear to Auscultation, Normal Respiratory Effort. No: Wheezing Cardiovascular: Regular Rate, Regular Rhythm, Normal S1, Normal S2 Extremities: Normal Inspection, Normal Range of Motion Neuro Extensive - Mental Status: Alert, Oriented x3, Normal Mood/Affect, Normal Cognition, Memory Intact Physical Exam Comments:: Able to sit up in bed on own. Converses and makes eye contact easily. Facial symmetry normal. Speech fluid. Mood and affect appropriate to clinical context. - Patient Data Lab Results Last 24 hrs: Laboratory Results - last 24 hr 08/27/19 08/27/19 08/27/19 Range/Units 05:09 05:09 05:09 WBC 15.0 H D (4.0-11.0) K/uL RBC 5.12 (4.50-6.50) M/uL Hgb 19.0 H* (13.0-18.0) g/dL Hct 44.4 (40.0-54.0) % MCV 87 (76-96) fL MCH 37.1 H (27.0-32.0) pg MCHC 42.8 H (31.0-35.0) g/dL RDW 12.4 (11.0-16.0) % Plt Count 262 (150-400) K/uL MPV 11.2 H (6.0-10.0) fL Add Manual Diff Yes Neutrophils % (Manual) 67.0 (45.0-70.0) % Lymphocytes % (Manual) 28.0 (20.0-40.0) % Monocytes % (Manual) 3.0 (3.0-10.0) % Eosinophils % (Manual) 2.0 (1.0-5.0) % Platelet Estimate Adequate VBG pH (7.31-7.41) VBG pCO2 (41-51) mm/Hg VBG pO2 (30-50) mm/Hg VBG HCO3 (23.0-28.0) mmol/L VBG O2 Saturation (60-85) % VBG Base Excess (-2-3) mm/L O2 Delivery Device Sodium 122 L (136-145) mmol/L Potassium 4.4 (3.5-5.1) mmol/L Chloride 88 L* (98-107) mmol/L Carbon Dioxide 16.0 L D (21.0-32.0) mmol/L Anion Gap 22.4 H (5.0-15.0) mmol/L BUN 16 D (8-26) mg/dL Creatinine Not Reportable Est Cr Clr Drug Dosing Not Reportable Estimated GFR (MDRD) Not Reportable BUN/Creatinine Ratio Not Reportable Glucose 543 H* D (74-100) mg/dL POC Glucose (74-110) mg/dL Hemoglobin A1c 10.2 H (< 5.7) % Calcium Not Reportable Total Bilirubin 2.2 H D (0.0-1.0) mg/dL AST Not Reportable ALT Not Reportable Alkaline Phosphatase 167 H (46-116) U/L Total Protein Not Reportable Albumin 3.5 (3.4-5.0) g/dL Globulin Not Reportable Albumin/Globulin Ratio Not Reportable Lipase (73-393) U/L Urine Color Urine Appearance (CLEAR) Urine pH (5.0-8.0) Ur Specific [place] (1.003-1.030) Urine Protein (NEGATIVE) mg/dL Urine Glucose (UA) (NEGATIVE) mg/dL Urine Ketones (NEGATIVE) mg/dL Urine Occult Blood (NEGATIVE) Urine Nitrite (NEGATIVE) Urine Bilirubin (NEGATIVE) Urine Urobilinogen (0.2-1.0) E.U./dL Ur Leukocyte Esterase (NEGATIVE) Urine RBC /HPF Urine WBC /HPF 08/27/19 08/27/19 08/27/19 Range/Units 05:09 05:10 05:37 WBC (4.0-11.0) K/uL RBC (4.50-6.50) M/uL Hgb (13.0-18.0) g/dL Hct (40.0-54.0) % MCV (76-96) fL MCH (27.0-32.0) pg MCHC (31.0-35.0) g/dL RDW (11.0-16.0) % Plt Count (150-400) K/uL MPV (6.0-10.0) fL Add Manual Diff Neutrophils % (Manual) (45.0-70.0) % Lymphocytes % (Manual) (20.0-40.0) % Monocytes % (Manual) (3.0-10.0) % Eosinophils % (Manual) (1.0-5.0) % Platelet Estimate VBG pH (7.31-7.41) VBG pCO2 (41-51) mm/Hg VBG pO2 (30-50) mm/Hg VBG HCO3 (23.0-28.0) mmol/L VBG O2 Saturation (60-85) % VBG Base Excess (-2-3) mm/L O2 Delivery Device Sodium (136-145) mmol/L Potassium (3.5-5.1) mmol/L Chloride (98-107) mmol/L Carbon Dioxide (21.0-32.0) mmol/L Anion Gap (5.0-15.0) mmol/L BUN (8-26) mg/dL Creatinine Est Cr Clr Drug Dosing Estimated GFR (MDRD) BUN/Creatinine Ratio Glucose (74-100) mg/dL POC Glucose 352 H (74-110) mg/dL Hemoglobin A1c (< 5.7) % Calcium Total Bilirubin (0.0-1.0) mg/dL AST ALT Alkaline Phosphatase (46-116) U/L Total Protein Albumin (3.4-5.0) g/dL Globulin Albumin/Globulin Ratio Lipase 337 (73-393) U/L Urine Color Yellow Urine Appearance Clear (CLEAR) Urine pH 5.0 (5.0-8.0) Ur Specific [place] 1.025 (1.003-1.030) Urine Protein 100 H (NEGATIVE) mg/dL Urine Glucose (UA) 500 H (NEGATIVE) mg/dL Urine Ketones 80 H (NEGATIVE) mg/dL Urine Occult Blood Trace-lysed H (NEGATIVE) Urine Nitrite Negative (NEGATIVE) Urine Bilirubin Small H (NEGATIVE) Urine Urobilinogen 0.2 (0.2-1.0) E.U./dL Ur Leukocyte Esterase Negative (NEGATIVE) Urine RBC Not seen /HPF Urine WBC Not seen /HPF 08/27/19 08/27/19 08/27/19 Range/Units 06:27 06:55 09:55 WBC (4.0-11.0) K/uL RBC (4.50-6.50) M/uL Hgb (13.0-18.0) g/dL Hct (40.0-54.0) % MCV (76-96) fL MCH (27.0-32.0) pg MCHC (31.0-35.0) g/dL RDW (11.0-16.0) % Plt Count (150-400) K/uL MPV (6.0-10.0) fL Add Manual Diff Neutrophils % (Manual) (45.0-70.0) % Lymphocytes % (Manual) (20.0-40.0) % Monocytes % (Manual) (3.0-10.0) % Eosinophils % (Manual) (1.0-5.0) % Platelet Estimate VBG pH 7.30 L (7.31-7.41) VBG pCO2 28.6 L (41-51) mm/Hg VBG pO2 47 (30-50) mm/Hg VBG HCO3 14.2 L (23.0-28.0) mmol/L VBG O2 Saturation 79 (60-85) % VBG Base Excess -12 L (-2-3) mm/L O2 Delivery Device Room air Sodium 127 L (136-145) mmol/L Potassium 3.7 (3.5-5.1) mmol/L Chloride 96 L (98-107) mmol/L Carbon Dioxide 12.4 L* D (21.0-32.0) mmol/L Anion Gap 22.3 H (5.0-15.0) mmol/L BUN 14 (8-26) mg/dL Creatinine 0.93 Est Cr Clr Drug Dosing 118.08 Estimated GFR (MDRD) > 60 BUN/Creatinine Ratio 15.1 Glucose 396 H (74-100) mg/dL POC Glucose 282 H (74-110) mg/dL Hemoglobin A1c (< 5.7) % Calcium Renal Medicine Physician Total Bilirubin (0.0-1.0) mg/dL AST ALT Alkaline Phosphatase (46-116) U/L Total Protein Albumin (3.4-5.0) g/dL Globulin Albumin/Globulin Ratio Lipase (73-393) U/L Urine Color Urine Appearance (CLEAR) Urine pH (5.0-8.0) Ur Specific [place] (1.003-1.030) Urine Protein (NEGATIVE) mg/dL Urine Glucose (UA) (NEGATIVE) mg/dL Urine Ketones (NEGATIVE) mg/dL Urine Occult Blood (NEGATIVE) Urine Nitrite (NEGATIVE) Urine Bilirubin (NEGATIVE) Urine Urobilinogen (0.2-1.0) E.U./dL Ur Leukocyte Esterase (NEGATIVE) Urine RBC /HPF Urine WBC /HPF Result Diagrams: 08/27/19 05:09 08/27/19 10:45 Imaging Impressions Last 24 hrs: Laboratory Tests 08/27/19 08/27/19 08/27/19 05:09 05:09 06:55 VBG pH 7.30 L VBG pCO2 28.6 L VBG HCO3 14.2 L Sodium Chloride Carbon Dioxide Anion Gap Glucose Hemoglobin A1c 10.2 H Total Bilirubin 2.2 H D 08/27/19 09:55 VBG pH VBG pCO2 VBG HCO3 Sodium 127 L Chloride 96 L Carbon Dioxide 12.4 L* D Anion Gap 22.3 H Glucose 396 H Hemoglobin A1c Total Bilirubin Sepsis Event Note - Evaluation Sepsis Screening Result: No Definite Risk - Focused Exam Vital Signs: Vital Signs Temp Pulse Resp BP Pulse Ox 08/27/19 07:45 36.2 C 104 H 18 139/102 H 99 08/27/19 06:30 36.6 C 110 H 18 139/99 H 97 08/27/19 04:59 125 H 18 98 08/27/19 04:33 36.1 C 120 H 18 140/106 H 98 Date Exam was Performed: 08/27/19 Time Exam was Performed: 11:17 - Problem List (1) DKA (diabetic ketoacidoses) SNOMED Code(s): 897868524, 669143041 ICD Code: E11.10 - TYPE 2 DIABETES MELLITUS WITH KETOACIDOSIS WITHOUT COMA Status: Acute Priority: High Current Visit: Yes Qualifiers: Diabetes mellitus type: type 2 Diabetes mellitus complication detail: without coma Qualified Code(s): E11.10 - Type 2 diabetes mellitus with ketoacidosis without coma (2) Hyponatremia SNOMED Code(s): 29505259 ICD Code: E87.1 - HYPO-OSMOLALITY AND HYPONATREMIA Status: Acute Current Visit: Yes (3) Hypertriglyceridemia SNOMED Code(s): 121278583 ICD Code: E78.1 - PURE HYPERGLYCERIDEMIA Status: Acute Current Visit: Yes (4) Depression SNOMED Code(s): 47987533 ICD Code: F32.9 - MAJOR DEPRESSIVE DISORDER, SINGLE EPISODE, UNSPECIFIED Status: Acute Current Visit: Yes Qualifiers: Depression Type: major depressive disorder Major depression recurrence: recurrent Active/Remission status: currently active Major depression episode severity: moderate Qualified Code(s): F33.1 - Major depressive disorder, recurrent, moderate Problem List Initiated/Reviewed/Updated: Yes Orders Last 24hrs: 1. Uncontrolled DM with DKA * Insulin Drip * IV fluids * Change to D5NS when blood sugar less than 250 * Continue IV Insulin drip until anion gap closed. * Diabetic ed * Likely to need SQ insulin for 2-3 months and then can consider changing to oral hypoglycemic * Rx for hypertriglyceridemia--Gemfibrozil 600 mg po BID--though this is not on formulary. * Encouraged smoking cessation * Nicotine patch for now * He has tried Wellbutrin and this has not worked. * Monitor electrolytes for replacement. 2. Depression/PTSD * Based on patient's history of multiple medications and his difficulty tolerating pain medications, he may benefit from genomic testing to determine best treatment options. * Pt does not endorse SI but notes his mood is not well controlled. * Hopefully Rx of blood sugar will help but untreated depression will likely not support his ability to successfully manage his DM. 3. Smoking * Smoking cessation provided. Discharge/Dispo: Likely to home. Patient likely to require > 2 MN but less than 96H in the hospital for IV insulin, teaching, electrolyte monitoring. DVT Ppx: Lovenox, SCDs Code Status: Full Code.
[2019-08-27] MEDS: Nicotine 21 MG/24 Hr Patch TRDERM SCH (11:36)
[2019-08-27] MEDS: Enoxaparin 40 MG/0.4 ML Syringe SUBCUT SCH (11:37)
[2019-08-27] MEDS: Sodium Chloride 0.9% with KCl 1,000 ML IV SCH (11:40)
[2019-08-27] MEDS: Dextrose 5%-0.9% NaCl 1,000 ML IV SCH ×2 (14:17→18:28)
[2019-08-28] MEDS: Dextrose 5%-0.9% NaCl 1,000 ML IV SCH ×2 (02:07→06:04)
[2019-08-28] MEDS ORDERED: Sodium Chloride 0.9% with KCl 1,000 ML IV SCH (02:15)
[2019-08-28] MEDS: Sodium Chloride 0.9% with KCl 1,000 ML IV SCH ×2 (02:17→06:03)
[2019-08-28 05:10] LABS: HEMOGLOBIN A1C 10.4 % (< 5.7)
[2019-08-28] MEDS: Enoxaparin 40 MG/0.4 ML Syringe SUBCUT SCH ×2 (08:00→08:51)
--- NOTE | 2019-08-28 08:08 | PCM.PN ---
- General Info Date of Service: 08/28/19 Admission Dx/Problem (Free Text): Admission Diagnosis/Problem Admission Diagnosis/Problem Diabetic ketoacidosis Subjective Update: pt states symptoms of blurred vision improved, although increased "bloated" feeling he believes is secondary to all the IV fluids being provided. generally better when compared to previous weeks. urinary frequency, he believes this also secondary to IV fluids. pt states he is motivated to learn more about DM during his stay. - Review of Systems General: Reports: Fatigue HEENT: Reports: No Symptoms Pulmonary: Reports: No Symptoms Cardiovascular: Reports: No Symptoms Gastrointestinal: Reports: Other (bloating/fullness) Genitourinary: Reports: Frequency Musculoskeletal: Reports: No Symptoms Neurological: Reports: No Symptoms - Patient Data Vitals - Most Recent: Last Vital Signs Temp 98.4 F 08/28/19 03:00 Pulse 106 H 08/27/19 17:00 Resp 20 08/28/19 03:00 BP 132/85 08/28/19 03:00 Pulse Ox 95 08/28/19 03:00 Weight - Most Recent: 274 lb 3 oz I&O - Last 24 Hours: Intake & Output 08/27/19 08/28/19 08/28/19 22:59 06:59 14:59 Intake Total 400 Output Total 2800 Balance -2400 Lab Results Last 24 Hours: Laboratory Results - last 24 hr 08/27/19 08/27/19 08/27/19 Range/Units 05:37 06:27 06:55 VBG pH 7.30 L (7.31-7.41) VBG pCO2 28.6 L (41-51) mm/Hg VBG pO2 47 (30-50) mm/Hg VBG HCO3 14.2 L (23.0-28.0) mmol/L VBG O2 Saturation 79 (60-85) % VBG Base Excess -12 L (-2-3) mm/L O2 Delivery Device Room air Sodium (136-145) mmol/L Potassium (3.5-5.1) mmol/L Chloride (98-107) mmol/L Carbon Dioxide (21.0-32.0) mmol/L Anion Gap (5.0-15.0) mmol/L BUN (8-26) mg/dL Creatinine (0.70-1.30) mg/dL Est Cr Clr Drug Dosing mL/min Estimated GFR (MDRD) (>60) MLS/MIN BUN/Creatinine Ratio (6-25) Glucose (74-100) mg/dL POC Glucose 352 H 282 H (74-110) mg/dL Hemoglobin A1c (< 5.7) % Calcium Phosphorus (2.5-4.9) mg/dL Magnesium (1.8-2.4) mg/dL Triglycerides (30-150) mg/dL Cholesterol (120-200) mg/dL LDL Cholesterol, Calc HDL Cholesterol (40-60) mg/dL Cholesterol/HDL Ratio (0.0-5.0) Lipase (73-393) U/L 08/27/19 08/27/19 08/27/19 Range/Units 09:55 10:45 10:45 VBG pH (7.31-7.41) VBG pCO2 (41-51) mm/Hg VBG pO2 (30-50) mm/Hg VBG HCO3 (23.0-28.0) mmol/L VBG O2 Saturation (60-85) % VBG Base Excess (-2-3) mm/L O2 Delivery Device Sodium 127 L 128 L (136-145) mmol/L Potassium 3.7 3.8 (3.5-5.1) mmol/L Chloride 96 L 96 L (98-107) mmol/L Carbon Dioxide 12.4 L* D 13.0 L* (21.0-32.0) mmol/L Anion Gap 22.3 H 22.8 H (5.0-15.0) mmol/L BUN 14 14 (8-26) mg/dL Creatinine 0.93 0.94 (0.70-1.30) mg/dL Est Cr Clr Drug Dosing 118.08 116.82 mL/min Estimated GFR (MDRD) > 60 > 60 (>60) MLS/MIN BUN/Creatinine Ratio 15.1 14.9 (6-25) Glucose 396 H 392 H (74-100) mg/dL POC Glucose (74-110) mg/dL Hemoglobin A1c (< 5.7) % Calcium Rn Clinical Research Rn Clinical Research Phosphorus 3.5 (2.5-4.9) mg/dL Magnesium 1.8 (1.8-2.4) mg/dL Triglycerides 4464 H D (30-150) mg/dL Cholesterol 266 H (120-200) mg/dL LDL Cholesterol, Calc TNP HDL Cholesterol 15 L (40-60) mg/dL Cholesterol/HDL Ratio 17.7 H (0.0-5.0) Lipase (73-393) U/L 08/27/19 08/27/19 08/27/19 Range/Units 12:16 12:30 13:13 VBG pH (7.31-7.41) VBG pCO2 (41-51) mm/Hg VBG pO2 (30-50) mm/Hg VBG HCO3 (23.0-28.0) mmol/L VBG O2 Saturation (60-85) % VBG Base Excess (-2-3) mm/L O2 Delivery Device Sodium (136-145) mmol/L Potassium 3.4 L (3.5-5.1) mmol/L Chloride (98-107) mmol/L Carbon Dioxide (21.0-32.0) mmol/L Anion Gap (5.0-15.0) mmol/L BUN (8-26) mg/dL Creatinine (0.70-1.30) mg/dL Est Cr Clr Drug Dosing mL/min Estimated GFR (MDRD) (>60) MLS/MIN BUN/Creatinine Ratio (6-25) Glucose (74-100) mg/dL POC Glucose 207 H 194 H (74-110) mg/dL Hemoglobin A1c (< 5.7) % Calcium Phosphorus (2.5-4.9) mg/dL Magnesium (1.8-2.4) mg/dL Triglycerides (30-150) mg/dL Cholesterol (120-200) mg/dL LDL Cholesterol, Calc HDL Cholesterol (40-60) mg/dL Cholesterol/HDL Ratio (0.0-5.0) Lipase (73-393) U/L 08/27/19 08/27/19 08/27/19 Range/Units 14:11 14:30 15:08 VBG pH (7.31-7.41) VBG pCO2 (41-51) mm/Hg VBG pO2 (30-50) mm/Hg VBG HCO3 (23.0-28.0) mmol/L VBG O2 Saturation (60-85) % VBG Base Excess (-2-3) mm/L O2 Delivery Device Sodium 125 L (136-145) mmol/L Potassium 3.7 (3.5-5.1) mmol/L Chloride 98 (98-107) mmol/L Carbon Dioxide (21.0-32.0) mmol/L Anion Gap 16.5 H (5.0-15.0) mmol/L BUN 12 (8-26) mg/dL Creatinine 0.85 (0.70-1.30) mg/dL Est Cr Clr Drug Dosing 129.19 mL/min Estimated GFR (MDRD) > 60 (>60) MLS/MIN BUN/Creatinine Ratio 14.1 (6-25) Glucose 408 H* (74-100) mg/dL POC Glucose 272 H 236 H (74-110) mg/dL Hemoglobin A1c (< 5.7) % Calcium Phosphorus (2.5-4.9) mg/dL Magnesium (1.8-2.4) mg/dL Triglycerides (30-150) mg/dL Cholesterol (120-200) mg/dL LDL Cholesterol, Calc HDL Cholesterol (40-60) mg/dL Cholesterol/HDL Ratio (0.0-5.0) Lipase (73-393) U/L 08/27/19 08/27/19 08/27/19 Range/Units 16:14 16:29 17:23 VBG pH (7.31-7.41) VBG pCO2 (41-51) mm/Hg VBG pO2 (30-50) mm/Hg VBG HCO3 (23.0-28.0) mmol/L VBG O2 Saturation (60-85) % VBG Base Excess (-2-3) mm/L O2 Delivery Device Sodium (136-145) mmol/L Potassium 3.5 (3.5-5.1) mmol/L Chloride (98-107) mmol/L Carbon Dioxide (21.0-32.0) mmol/L Anion Gap (5.0-15.0) mmol/L BUN (8-26) mg/dL Creatinine (0.70-1.30) mg/dL Est Cr Clr Drug Dosing mL/min Estimated GFR (MDRD) (>60) MLS/MIN BUN/Creatinine Ratio (6-25) Glucose (74-100) mg/dL POC Glucose 206 H 231 H (74-110) mg/dL Hemoglobin A1c (< 5.7) % Calcium Phosphorus 2.4 L (2.5-4.9) mg/dL Magnesium 1.7 L (1.8-2.4) mg/dL Triglycerides (30-150) mg/dL Cholesterol (120-200) mg/dL LDL Cholesterol, Calc HDL Cholesterol (40-60) mg/dL Cholesterol/HDL Ratio (0.0-5.0) Lipase (73-393) U/L 08/27/19 08/27/19 08/27/19 Range/Units 18:30 20:24 20:30 VBG pH (7.31-7.41) VBG pCO2 (41-51) mm/Hg VBG pO2 (30-50) mm/Hg VBG HCO3 (23.0-28.0) mmol/L VBG O2 Saturation (60-85) % VBG Base Excess (-2-3) mm/L O2 Delivery Device Sodium 129 L (136-145) mmol/L Potassium 3.7 3.8 (3.5-5.1) mmol/L Chloride 101 (98-107) mmol/L Carbon Dioxide 17.1 L D (21.0-32.0) mmol/L Anion Gap 14.6 (5.0-15.0) mmol/L BUN 10 (8-26) mg/dL Creatinine 0.79 (0.70-1.30) mg/dL Est Cr Clr Drug Dosing 139.00 mL/min Estimated GFR (MDRD) > 60 (>60) MLS/MIN BUN/Creatinine Ratio 12.7 (6-25) Glucose 338 H (74-100) mg/dL POC Glucose 221 H (74-110) mg/dL Hemoglobin A1c (< 5.7) % Calcium 6.0 L* D Phosphorus (2.5-4.9) mg/dL Magnesium (1.8-2.4) mg/dL Triglycerides (30-150) mg/dL Cholesterol (120-200) mg/dL LDL Cholesterol, Calc HDL Cholesterol (40-60) mg/dL Cholesterol/HDL Ratio (0.0-5.0) Lipase (73-393) U/L 08/27/19 08/28/19 08/28/19 Range/Units 22:24 00:30 02:30 VBG pH (7.31-7.41) VBG pCO2 (41-51) mm/Hg VBG pO2 (30-50) mm/Hg VBG HCO3 (23.0-28.0) mmol/L VBG O2 Saturation (60-85) % VBG Base Excess (-2-3) mm/L O2 Delivery Device Sodium 128 L 128 L (136-145) mmol/L Potassium 3.9 4.0 4.0 (3.5-5.1) mmol/L Chloride 100 101 (98-107) mmol/L Carbon Dioxide 15.6 L 12.9 L* (21.0-32.0) mmol/L Anion Gap 16.3 H 18.1 H (5.0-15.0) mmol/L BUN 8 6 L D (8-26) mg/dL Creatinine 0.76 0.62 L (0.70-1.30) mg/dL Est Cr Clr Drug Dosing 144.49 177.12 mL/min Estimated GFR (MDRD) > 60 > 60 (>60) MLS/MIN BUN/Creatinine Ratio 10.5 9.7 (6-25) Glucose 296 H 353 H (74-100) mg/dL POC Glucose (74-110) mg/dL Hemoglobin A1c (< 5.7) % Calcium 6.0 L* 6.2 L* Phosphorus 2.0 L (2.5-4.9) mg/dL Magnesium 1.7 L (1.8-2.4) mg/dL Triglycerides (30-150) mg/dL Cholesterol (120-200) mg/dL LDL Cholesterol, Calc HDL Cholesterol (40-60) mg/dL Cholesterol/HDL Ratio (0.0-5.0) Lipase (73-393) U/L 08/28/19 08/28/19 08/28/19 Range/Units 04:45 04:45 04:45 VBG pH (7.31-7.41) VBG pCO2 (41-51) mm/Hg VBG pO2 (30-50) mm/Hg VBG HCO3 (23.0-28.0) mmol/L VBG O2 Saturation (60-85) % VBG Base Excess (-2-3) mm/L O2 Delivery Device Sodium (136-145) mmol/L Potassium 3.8 (3.5-5.1) mmol/L Chloride (98-107) mmol/L Carbon Dioxide (21.0-32.0) mmol/L Anion Gap (5.0-15.0) mmol/L BUN (8-26) mg/dL Creatinine (0.70-1.30) mg/dL Est Cr Clr Drug Dosing mL/min Estimated GFR (MDRD) (>60) MLS/MIN BUN/Creatinine Ratio (6-25) Glucose (74-100) mg/dL POC Glucose (74-110) mg/dL Hemoglobin A1c 10.4 H (< 5.7) % Calcium Phosphorus 1.6 L (2.5-4.9) mg/dL Magnesium 1.6 L (1.8-2.4) mg/dL Triglycerides (30-150) mg/dL Cholesterol (120-200) mg/dL LDL Cholesterol, Calc HDL Cholesterol (40-60) mg/dL Cholesterol/HDL Ratio (0.0-5.0) Lipase 183 D (73-393) U/L 08/28/19 08/28/19 Range/Units 07:00 07:54 VBG pH (7.31-7.41) VBG pCO2 (41-51) mm/Hg VBG pO2 (30-50) mm/Hg VBG HCO3 (23.0-28.0) mmol/L VBG O2 Saturation (60-85) % VBG Base Excess (-2-3) mm/L O2 Delivery Device Sodium 131 L (136-145) mmol/L Potassium 3.7 (3.5-5.1) mmol/L Chloride 103 (98-107) mmol/L Carbon Dioxide 17.1 L D (21.0-32.0) mmol/L Anion Gap 14.6 (5.0-15.0) mmol/L BUN 6 L (8-26) mg/dL Creatinine 0.70 (0.70-1.30) mg/dL Est Cr Clr Drug Dosing 156.88 mL/min Estimated GFR (MDRD) > 60 (>60) MLS/MIN BUN/Creatinine Ratio 8.6 (6-25) Glucose 328 H (74-100) mg/dL POC Glucose 254 H (74-110) mg/dL Hemoglobin A1c (< 5.7) % Calcium 7.1 L Phosphorus (2.5-4.9) mg/dL Magnesium (1.8-2.4) mg/dL Triglycerides (30-150) mg/dL Cholesterol (120-200) mg/dL LDL Cholesterol, Calc HDL Cholesterol (40-60) mg/dL Cholesterol/HDL Ratio (0.0-5.0) Lipase (73-393) U/L Med Orders - Current: Current Medications Acetaminophen (Tylenol) 650 mg PO Q6H PRN PRN Reason: Pain Enoxaparin Sodium (Lovenox) 40 mg SUBCUT DAILY [facility] Last Admin: 08/27/19 11:37 Dose: 40 mg Documented by: Sodium Chloride (Normal Saline) 1,000 mls @ 250 mls/hr IV ASDIRECTED [facility] Last Admin: 08/27/19 08:15 Dose: 250 mls/hr Documented by: Insulin Human Regular 100 unit (/ Sodium Chloride) 101 mls @ 12.561 mls/hr IV TITRATE CHRIS; Protocol Last Titration: 08/28/19 06:31 Dose: 0.06 unit/kg/hr, 7 mls/hr Documented by: Potassium Chloride/Sodium Chloride (Normal Saline With 40 Meq Kcl) 1,000 mls @ 125 mls/hr IV ASDIRECTED [facility] Last Infusion: 08/28/19 06:04 Dose: 125 mls/hr Documented by: Sodium Phosphate 60 mmole/ (Sodium Chloride) 270 mls @ 62.5 mls/hr IV ONETIME PRN PRN Reason: Low phophorus Dextrose/Sodium Chloride (Dextrose 5%-Normal Saline) 1,000 mls @ 250 mls/hr IV ASDIRECTED [facility] Last Infusion: 08/28/19 06:31 Dose: 250 mls/hr Documented by: Melatonin (Melatonin) 6 mg PO BEDTIME PRN PRN Reason: Sleep Nicotine (Habitrol) 21 mg TRDERM DAILY [facility] Last Admin: 08/27/19 11:36 Dose: 21 mg Documented by: Ondansetron HCl (Zofran Odt) 4 mg PO Q8H PRN PRN Reason: Nausea/Vomiting Potassium Chloride (Potassium Chloride Solution) 20 meq PO NOW PRN PRN Reason: Hypokalemia Sodium Chloride (Saline Flush) 10 ml FLUSH ASDIRECTED PRN PRN Reason: Keep Vein Open Discontinued Medications Dextrose/Water (Dextrose 50% In Water) 50 ml IVPUSH ONETIME ONE Stop: 08/27/19 10:28 Last Admin: 08/27/19 14:02 Dose: 50 ml Documented by: Sodium Chloride (Normal Saline) 1,000 mls @ 1,000 mls/hr IV .BOLUS ONE Stop: 08/27/19 06:59 Last Admin: 08/27/19 07:13 Dose: 1,000 mls/hr Documented by: Sodium Chloride (Normal Saline) 1,000 mls @ 999 mls/hr IV .BOLUS ONE Stop: 08/27/19 08:27 Last Admin: 08/27/19 07:36 Dose: Not Given Documented by: Sodium Chloride (Normal Saline) 2,000 mls @ 500 mls/hr IV ASDIRECTED PRN PRN Reason: Blood Glucose Potassium Chloride/Sodium Chloride (Normal Saline With 40 Meq Kcl) 1,000 mls @ 125 mls/hr IV ASDIRECTED [facility] Insulin Human Regular (Humulin R) 10 unit IV ONETIME ONE Stop: 08/27/19 06:02 Last Admin: 08/27/19 06:16 Dose: 10 units Documented by: Ketorolac Tromethamine (Toradol) 15 mg IVPUSH ONETIME ONE Stop: 08/27/19 09:28 Last Admin: 08/27/19 09:30 Dose: 15 mg Documented by: Ketorolac Tromethamine (Toradol) Confirm Administered Dose 30 mg .ROUTE .STK-MED ONE Stop: 08/27/19 09:37 Last Admin: 08/27/19 09:34 Dose: Not Given Documented by: Nicotine (Habitrol) 21 mg TRDERM DAILY [facility] Last Admin: 08/27/19 16:51 Dose: Not Given Documented by: Comments:: labs have improved in trending fashion: anion gap wavering between 14-18 over last 16 hours; K+ steadily in normal range 3.6-4; Na trending to normal ranges from 122 to current 131. pt appears more comfortable, awake, alert, good spirits. non-ill appearing. - Exam Quality Assessment: DVT Prophylaxis General: Alert, Oriented, Cooperative, No Acute Distress HEENT: Pupils Equal, EOMI Lungs: Clear to Auscultation, Normal Respiratory Effort Cardiovascular: Regular Rate, Regular Rhythm GI/Abdominal Exam: Normal Bowel Sounds, Soft Extremities: Normal Inspection, Normal Range of Motion, Non-Tender, No Pedal Edema Peripheral Pulses: 2+: Radial (L), Radial (R), Dorsalis Pedis (L), Dorsalis Pedis (R) Skin: Warm, Dry, Intact Neurological: No New Focal Deficit Psy/Mental Status: Alert, Normal Affect, Normal Mood Sepsis Event Note - Evaluation Sepsis Screening Result: No Definite Risk - Focused Exam Vital Signs: Vital Signs Temp Resp BP Pulse Ox 08/28/19 03:00 98.4 F 20 132/85 95 08/27/19 23:00 98.1 F 18 120/82 96 Date Exam was Performed: 08/28/19 Time Exam was Performed: 14:17 - Problem List & Annotations (1) DKA (diabetic ketoacidoses) SNOMED Code(s): 590895917, 689743866 Code(s): E11.10 - TYPE 2 DIABETES MELLITUS WITH KETOACIDOSIS WITHOUT COMA Status: Acute Priority: High Current Visit: Yes Qualifiers: Diabetes mellitus type: type 2 Diabetes mellitus complication detail: without coma Qualified Code(s): E11.10 - Type 2 diabetes mellitus with ketoacidosis without coma (2) Hyponatremia SNOMED Code(s): 57731220 Code(s): E87.1 - HYPO-OSMOLALITY AND HYPONATREMIA Status: Acute Current Visit: Yes (3) Depression SNOMED Code(s): 92464381 Code(s): F32.9 - MAJOR DEPRESSIVE DISORDER, SINGLE EPISODE, UNSPECIFIED Status: Acute Current Visit: Yes Qualifiers: Depression Type: major depressive disorder Major depression recurrence: recurrent Active/Remission status: currently active Major depression episode severity: moderate Qualified Code(s): F33.1 - Major depressive disorder, recurrent, moderate - Problem List Review Problem List Initiated/Reviewed/Updated: Yes - My Orders Last 24 Hours: My Active Orders 08/27/19 08:15 Sodium Chloride 0.9% [Normal Saline] 1,000 ml IV ASDIRECTED 08/27/19 10:36 Patient Status [ADT] Routine Resuscitation Status Routine 08/27/19 16:45 CULTURE MRSA SURVEY [RM] Routine - Assessment Assessment:: 1. Uncontrolled diabetes with DKA -Continue insulin drip -D5 normal saline when blood sugar is less than 250 -Insulin drip until anion gap is within normal ranges for 2 draws, then stop. -Diabetic education from nursing staff, certified on call Thursday -Begin subcutaneous insulin when insulin IV drip has been discontinued -Prescription for gemfibrozil 600 mg p.o. twice daily for when at home 2. Hyponatremia/electrolytes -Continue with IV fluids and monitor sodium as normalizes -Bear in mind that sodium may be off due to significant lipemia -PO K+ BID x1day 3. Depression/PTSD -Providing patient with calming environment and social support while in the inpatient unit -Nicotine patch while in the hospital inpatient
[2019-08-28] MEDS: Nicotine 21 MG/24 Hr Patch TRDERM SCH (08:51)
[2019-08-28] MEDS ORDERED: Insulin Aspart 100 Units/ML 3 ML Pen SUBCUT SCH ×2 (09:00→12:00)
[2019-08-28] MEDS ORDERED: Insulin Glargine,Human Rec. Analog 100 Units/ML 3 ML Pen SUBCUT SCH (09:00)
[2019-08-28] MEDS ORDERED: Potassium Chloride 10% 20 MEQ/15 ML Soln 15 ML UD Cup PO PRN (12:49)
[2019-08-28] MEDS ORDERED: 50% Dextrose in Water 50 ML Syringe IV PRN (13:53)
[2019-08-28] MEDS ORDERED: Insulin Regular, Human 100 Units/ML 3 ML Vial SUBCUT ONE (15:21)
[2019-08-28] MEDS: Insulin Aspart 100 Units/ML 3 ML Pen SUBCUT SCH (17:29)
[2019-08-28] MEDS ORDERED: Insulin Aspart 100 Units/ML 3 ML Pen SUBCUT ONE (19:05)
[2019-08-28] MEDS ORDERED: Insulin Regular, Human 100 Units/ML 3 ML Vial IV ONE (20:17)
[2019-08-29] MEDS: Nicotine 21 MG/24 Hr Patch TRDERM SCH (07:55)
[2019-08-29] MEDS: Enoxaparin 40 MG/0.4 ML Syringe SUBCUT SCH (07:57)
[2019-08-29] MEDS ORDERED: Insulin Glargine,Human Rec. Analog 100 Units/ML 3 ML Pen SUBCUT SCH (08:00)
[2019-08-29] MEDS: Insulin Aspart 100 Units/ML 3 ML Pen SUBCUT SCH ×3 (08:07→11:47)
--- NOTE | 2019-08-29 10:50 | PCM.DCSUM1 ---
Discharge Summary - Hospital Course Brief History: Patient was admitted to the [facility] for DKA. Attempted to initially admit patient to [facility] facility in [place], but they recommended due to length of travel and distance to [facility] but if he was able to be admitted here that would be acceptable. Patient was initiated on insulin drip on the morning of the 26 August, this was stopped yesterday and patient was initiated on subcutaneous insulin after his anion gap had return to normal ranges. Patient has been tolerating subcutaneous insulin very well and is set to speak with the informatics educator today. Patient is requesting discharge home today after education and return demonstrations of self-care. - Discharge Data Discharge Date: 08/29/19 Discharge Disposition: Home, Self-Care 01 Condition: Stable - Referral to Home Health Primary Care Physician: PCP None - Discharge Diagnosis/Problem(s) (1) DKA (diabetic ketoacidoses) SNOMED Code(s): 784898792, [id number] ICD Code: E11.10 - TYPE 2 DIABETES MELLITUS WITH KETOACIDOSIS WITHOUT COMA Status: Resolved Priority: High Current Visit: Yes Qualifiers: Diabetes mellitus type: type 2 Diabetes mellitus complication detail: without coma Qualified Code(s): E11.10 - Type 2 diabetes mellitus with ketoacidosis without coma (2) Hyponatremia SNOMED Code(s): 56024319 ICD Code: E87.1 - HYPO-OSMOLALITY AND HYPONATREMIA Status: Resolved Current Visit: Yes (3) Depression SNOMED Code(s): 04221929 ICD Code: F32.9 - MAJOR DEPRESSIVE DISORDER, SINGLE EPISODE, UNSPECIFIED Status: Acute Current Visit: Yes Qualifiers: Depression Type: major depressive disorder Major depression recurrence: recurrent Active/Remission status: currently active Major depression episode severity: moderate Qualified Code(s): F33.1 - Major depressive disorder, recurrent, moderate - Patient Summary/Data Consults: Consultations 08/27/19 10:27 Consult to Diabetic Nurse Specialist [CONS] Routine Comment: Physician Instructions: - Patient Instructions Diet: Diabetic Diet Diet, Other: keep carb load about 100g a day, if able Activity: As Tolerated Activity, Other: walk, attempt 5 miles per day and increase that as able Driving: May Drive Today Showering/Bathing: May Shower - Discharge Plan *PRESCRIPTION DRUG MONITORING PROGRAM REVIEWED*: Not Applicable *COPY OF PRESCRIPTION DRUG MONITORING REPORT IN PATIENT NICK: Not Applicable Home Medications: Home Meds NK [No Known Home Meds] 01/31/16 [History] Oxygen Therapy Mode: Room Air Forms: ED Department Discharge Referrals: PCP,None [Primary Care Provider] - - Discharge Summary/Plan Comment DC Time >30 min.: Yes Discharge Summary/Plan Comment: Patient discharged home with prescriptions for long-acting and short acting insulin as well as a blood glucose monitor with strips and [facility] primary care through local facility under [facility]. Gemfibrozil was considered but will hold currently as patient will be starting new diet and lifestyle and recheck of his lipid panel should be done in the future to monitor this and prescriptions at that time if necessary. Patient is highly motivated to return home today and continue learning about the diabetic disease process and its treatment and management. Patient will be discharged home in the care of . - General Info Date of Service: 08/29/19 Admission Dx/Problem (Free Text: Admission Diagnosis/Problem Admission Diagnosis/Problem Diabetic ketoacidosis Subjective Update: pt states symptoms of blurred vision almost resolved, "bloated" feeling has also decreased. pt states he is motivated he discharged home for home management of his new onset diabetes. Functional Status: Reports: Pain Controlled, Tolerating Diet, Ambulating, Urinating - Review of Systems General: Reports: No Symptoms HEENT: Reports: No Symptoms Pulmonary: Reports: No Symptoms Cardiovascular: Reports: No Symptoms Gastrointestinal: Reports: No Symptoms Genitourinary: Reports: No Symptoms Musculoskeletal: Reports: No Symptoms Skin: Reports: No Symptoms Neurological: Reports: No Symptoms Psychiatric: Reports: No Symptoms - Patient Data Vitals - Most Recent: Last Vital Signs Temp 98.1 F 08/29/19 06:54 Pulse 88 08/29/19 06:54 Resp 18 08/29/19 06:54 BP 137/90 08/29/19 06:54 Pulse Ox 97 08/29/19 06:54 Weight - Most Recent: 274 lb 3 oz I&O - Last 24 hours: Intake & Output 08/28/19 08/29/19 08/29/19 22:59 06:59 14:59 Intake Total 300 Balance 300 Lab Results - Last 24 hrs: Laboratory Results - last 24 hr 08/28/19 08/28/19 08/28/19 Range/Units 11:32 12:00 12:26 Sodium 132 L (136-145) mmol/L Potassium 3.6 (3.5-5.1) mmol/L Chloride 103 (98-107) mmol/L Carbon Dioxide 17.8 L (21.0-32.0) mmol/L Anion Gap 14.8 (5.0-15.0) mmol/L BUN 6 L (8-26) mg/dL Creatinine 0.64 L (0.70-1.30) mg/dL Est Cr Clr Drug Dosing 171.58 mL/min Estimated GFR (MDRD) > 60 (>60) MLS/MIN BUN/Creatinine Ratio 9.4 (6-25) Glucose 237 H (74-100) mg/dL POC Glucose 258 H 159 H (74-110) mg/dL Calcium 7.1 L (8.5-10.1) mg/dL Total Bilirubin (0.0-1.0) mg/dL AST (15-37) U/L ALT (12-78) U/L Alkaline Phosphatase (46-116) U/L Total Protein (6.4-8.2) g/dL Albumin (3.4-5.0) g/dL Globulin (2.2-4.2) g/dL Albumin/Globulin Ratio (0.8-2.0) 08/28/19 08/28/19 08/28/19 Range/Units 13:00 14:07 14:59 Sodium (136-145) mmol/L Potassium (3.5-5.1) mmol/L Chloride (98-107) mmol/L Carbon Dioxide (21.0-32.0) mmol/L Anion Gap (5.0-15.0) mmol/L BUN (8-26) mg/dL Creatinine (0.70-1.30) mg/dL Est Cr Clr Drug Dosing mL/min Estimated GFR (MDRD) (>60) MLS/MIN BUN/Creatinine Ratio (6-25) Glucose (74-100) mg/dL POC Glucose 238 H 284 H 406 H* (74-110) mg/dL Calcium (8.5-10.1) mg/dL Total Bilirubin (0.0-1.0) mg/dL AST (15-37) U/L ALT (12-78) U/L Alkaline Phosphatase (46-116) U/L Total Protein (6.4-8.2) g/dL Albumin (3.4-5.0) g/dL Globulin (2.2-4.2) g/dL Albumin/Globulin Ratio (0.8-2.0) 08/28/19 08/28/19 08/28/19 Range/Units 15:53 16:02 17:12 Sodium (136-145) mmol/L Potassium (3.5-5.1) mmol/L Chloride (98-107) mmol/L Carbon Dioxide (21.0-32.0) mmol/L Anion Gap (5.0-15.0) mmol/L BUN (8-26) mg/dL Creatinine (0.70-1.30) mg/dL Est Cr Clr Drug Dosing mL/min Estimated GFR (MDRD) (>60) MLS/MIN BUN/Creatinine Ratio (6-25) Glucose (74-100) mg/dL POC Glucose 303 H 305 H 308 H (74-110) mg/dL Calcium (8.5-10.1) mg/dL Total Bilirubin (0.0-1.0) mg/dL AST (15-37) U/L ALT (12-78) U/L Alkaline Phosphatase (46-116) U/L Total Protein (6.4-8.2) g/dL Albumin (3.4-5.0) g/dL Globulin (2.2-4.2) g/dL Albumin/Globulin Ratio (0.8-2.0) 08/28/19 08/28/19 08/28/19 Range/Units 17:58 19:07 20:08 Sodium (136-145) mmol/L Potassium (3.5-5.1) mmol/L Chloride (98-107) mmol/L Carbon Dioxide (21.0-32.0) mmol/L Anion Gap (5.0-15.0) mmol/L BUN (8-26) mg/dL Creatinine (0.70-1.30) mg/dL Est Cr Clr Drug Dosing mL/min Estimated GFR (MDRD) (>60) MLS/MIN BUN/Creatinine Ratio (6-25) Glucose (74-100) mg/dL POC Glucose 314 H 278 H 253 H (74-110) mg/dL Calcium (8.5-10.1) mg/dL Total Bilirubin (0.0-1.0) mg/dL AST (15-37) U/L ALT (12-78) U/L Alkaline Phosphatase (46-116) U/L Total Protein (6.4-8.2) g/dL Albumin (3.4-5.0) g/dL Globulin (2.2-4.2) g/dL Albumin/Globulin Ratio (0.8-2.0) 08/28/19 08/29/19 08/29/19 Range/Units 21:09 00:51 04:45 Sodium (136-145) mmol/L Potassium (3.5-5.1) mmol/L Chloride (98-107) mmol/L Carbon Dioxide (21.0-32.0) mmol/L Anion Gap (5.0-15.0) mmol/L BUN (8-26) mg/dL Creatinine (0.70-1.30) mg/dL Est Cr Clr Drug Dosing mL/min Estimated GFR (MDRD) (>60) MLS/MIN BUN/Creatinine Ratio (6-25) Glucose (74-100) mg/dL POC Glucose 241 H 215 H 218 H (74-110) mg/dL Calcium (8.5-10.1) mg/dL Total Bilirubin (0.0-1.0) mg/dL AST (15-37) U/L ALT (12-78) U/L Alkaline Phosphatase (46-116) U/L Total Protein (6.4-8.2) g/dL Albumin (3.4-5.0) g/dL Globulin (2.2-4.2) g/dL Albumin/Globulin Ratio (0.8-2.0) 08/29/19 Range/Units 07:05 Sodium 132 L (136-145) mmol/L Potassium 3.7 (3.5-5.1) mmol/L Chloride 99 (98-107) mmol/L Carbon Dioxide 19.5 L (21.0-32.0) mmol/L Anion Gap 17.2 H (5.0-15.0) mmol/L BUN 6 L (8-26) mg/dL Creatinine 0.66 L (0.70-1.30) mg/dL Est Cr Clr Drug Dosing 166.38 mL/min Estimated GFR (MDRD) > 60 (>60) MLS/MIN BUN/Creatinine Ratio 9.1 (6-25) Glucose 233 H (74-100) mg/dL POC Glucose (74-110) mg/dL Calcium 8.3 L (8.5-10.1) mg/dL Total Bilirubin 1.3 H D (0.0-1.0) mg/dL AST 18 (15-37) U/L ALT (12-78) U/L Alkaline Phosphatase 109 (46-116) U/L Total Protein 8.0 (6.4-8.2) g/dL Albumin 3.3 L (3.4-5.0) g/dL Globulin 4.7 H (2.2-4.2) g/dL Albumin/Globulin Ratio 0.7 L (0.8-2.0) IZZY Results - Last 24 hrs: Microbiology 08/27/19 16:45 MRSA Surveillance Culture - Final Nares, Unspecified NO MRSA ISOLATED Med Orders - Current: Current Medications Acetaminophen (Tylenol) 650 mg PO Q6H PRN PRN Reason: Pain Dextrose/Water (Dextrose 50% In Water) 50 ml IV ONETIME PRN PRN Reason: Hypoglycemia Enoxaparin Sodium (Lovenox) 40 mg SUBCUT DAILY [facility] Last Admin: 08/29/19 07:57 Dose: 40 mg Documented by: Sodium Chloride (Normal Saline) 1,000 mls @ 250 mls/hr IV ASDIRECTED [facility] Last Admin: 08/27/19 08:15 Dose: 250 mls/hr Documented by: Insulin Human Regular 100 unit (/ Sodium Chloride) 101 mls @ 12.561 mls/hr IV TITRATE [facility]; Protocol Last Titration: 08/28/19 06:31 Dose: 0.06 unit/kg/hr, 7 mls/hr Documented by: Sodium Phosphate 60 mmole/ (Sodium Chloride) 270 mls @ 62.5 mls/hr IV ONETIME PRN PRN Reason: Low phophorus Dextrose/Sodium Chloride (Dextrose 5%-Normal Saline) 1,000 mls @ 250 mls/hr IV ASDIRECTED [facility] Last Infusion: 08/28/19 06:31 Dose: 250 mls/hr Documented by: Insulin Aspart (Novolog) 4 unit SUBCUT TIDMEALS [facility] Last Admin: 08/29/19 08:40 Dose: 0.4 units Documented by: Insulin Glargine (Lantus Solostar) 15 units SUBCUT DAILY [facility] Last Admin: 08/29/19 08:00 Dose: 15 unit Documented by: Melatonin (Melatonin) 6 mg PO BEDTIME PRN PRN Reason: Sleep Nicotine (Habitrol) 21 mg TRDERM DAILY [facility] Last Admin: 08/29/19 07:55 Dose: 21 mg Documented by: Ondansetron HCl (Zofran Odt) 4 mg PO Q8H PRN PRN Reason: Nausea/Vomiting Potassium Chloride (Potassium Chloride Solution) 20 meq PO BID PRN PRN Reason: Hypokalemia Last Admin: 08/28/19 14:00 Dose: 20 meq Documented by: Sodium Chloride (Saline Flush) 10 ml FLUSH ASDIRECTED PRN PRN Reason: Keep Vein Open Discontinued Medications Dextrose/Water (Dextrose 50% In Water) 50 ml IVPUSH ONETIME ONE Stop: 08/27/19 10:28 Last Admin: 08/27/19 14:02 Dose: 50 ml Documented by: Sodium Chloride (Normal Saline) 1,000 mls @ 1,000 mls/hr IV .BOLUS ONE Stop: 08/27/19 06:59 Last Admin: 08/27/19 07:13 Dose: 1,000 mls/hr Documented by: Sodium Chloride (Normal Saline) 1,000 mls @ 999 mls/hr IV .BOLUS ONE Stop: 08/27/19 08:27 Last Admin: 08/27/19 07:36 Dose: Not Given Documented by: Sodium Chloride (Normal Saline) 2,000 mls @ 500 mls/hr IV ASDIRECTED PRN PRN Reason: Blood Glucose Potassium Chloride/Sodium Chloride (Normal Saline With 40 Meq Kcl) 1,000 mls @ 100 mls/hr IV ASDIRECTED CHRIS Stop: 08/29/19 07:00 Last Infusion: 08/28/19 06:04 Dose: 125 mls/hr Documented by: Potassium Chloride/Sodium Chloride (Normal Saline With 40 Meq Kcl) 1,000 mls @ 125 mls/hr IV ASDIRECTED [facility] Insulin Aspart (Novolog) 3 unit SUBCUT ONETIME [facility] Last Admin: 08/28/19 09:18 Dose: 3 unit Documented by: Insulin Aspart (Novolog) 3 unit SUBCUT TIDMEALS [facility] Last Admin: 08/28/19 12:50 Dose: 3 units Documented by: Insulin Aspart (Novolog) 3 unit SUBCUT ONETIME ONE Stop: 08/28/19 19:06 Last Admin: 08/28/19 19:27 Dose: 3 units Documented by: Insulin Glargine (Lantus Solostar) 10 units SUBCUT DAILY [facility] Last Admin: 08/28/19 09:17 Dose: 10 unit Documented by: Insulin Human Regular (Humulin R) 10 unit IV ONETIME ONE Stop: 08/27/19 06:02 Last Admin: 08/27/19 06:16 Dose: 10 units Documented by: Insulin Human Regular (Humulin R) 4 unit SUBCUT ONETIME ONE Stop: 08/28/19 15:22 Last Admin: 08/28/19 16:38 Dose: 4 units Documented by: Insulin Human Regular (Humulin R) 3 unit IV ONETIME ONE Stop: 08/28/19 20:18 Last Admin: 08/28/19 20:17 Dose: 3 units Documented by: Ketorolac Tromethamine (Toradol) 15 mg IVPUSH ONETIME ONE Stop: 08/27/19 09:28 Last Admin: 08/27/19 09:30 Dose: 15 mg Documented by: Ketorolac Tromethamine (Toradol) Confirm Administered Dose 30 mg .ROUTE .STK-MED ONE Stop: 08/27/19 09:37 Last Admin: 08/27/19 09:34 Dose: Not Given Documented by: Nicotine (Habitrol) 21 mg TRDERM DAILY [facility] Last Admin: 08/27/19 16:51 Dose: Not Given Documented by: Potassium Chloride (Potassium Chloride Solution) 20 meq PO NOW PRN PRN Reason: Hypokalemia - Exam General: Reports: Alert, Oriented HEENT: Reports: Pupils Equal, Pupils Reactive, EOMI Lungs: Reports: Clear to Auscultation, Normal Respiratory Effort Cardiovascular: Reports: Regular Rate, Regular Rhythm GI/Abdominal Exam: Normal Bowel Sounds, Soft, Non-Tender, No Distention Back Exam: Reports: Normal Inspection, Full Range of Motion Extremities: Normal Inspection, Normal Range of Motion, No Pedal Edema Skin: Reports: Warm, Dry, Intact Neurological: Reports: No New Focal Deficit Psy/Mental Status: Reports: Alert, Normal Affect
[2019-08-29 12:48] VITALS: BP 139/93; PULSE 103
== END 2019-08-29 12:20 | disposition home or self-care (01) | DRG 638 ==
LOC: LB.ED 02:57 → LB.MS 10:36
PROVIDERS: ADMIT Registered Nurse; ATTEND Registered Nurse
DX: E11.10 Type 2 diabetes mellitus with ketoacidosis without coma (principal); E87.1 Hypo-osmolality and hyponatremia; F33.1 Major depressive disorder, recurrent, moderate; I10 Essential (primary) hypertension; F43.10 Post-traumatic stress disorder, unspecified; H54.7 Unspecified visual loss; F41.9 Anxiety disorder, unspecified; F32.9 Major depressive disorder, single episode, unspecified; K76.0 Fatty (change of) liver, not elsewhere classified; F17.210 Nicotine dependence, cigarettes, uncomplicated; Z87.442 Personal history of urinary calculi; Z79.4 Long term (current) use of insulin
CPT/HCPCS: 36415; 80048; 80053; 81001; 82803; 82962 ×2; 83036; 83690; 85025; 96361; 96374; 99291; J1885; J7030; J7040 ×2; 80061; 83735; 84100; 84132; A9270-GY; J1650; J1815-GY; J3480; J7050

== ENCOUNTER 2020-02-01 06:06 | Emergency (ER) | payer OTHER ==
[2020-02-01 06:11] VITALS: BP 143/108; PULSE 96
[2020-02-01] MEDS ORDERED: Ketorolac 30 MG/ML SDV IVPUSH ONE (06:32)
[2020-02-01] MEDS ORDERED: HYDROmorphone 2 MG/ML SDV IVPUSH ONE (06:58)
[2020-02-01] MEDS ORDERED: Acetaminophen/oxyCODONE 325-5 MG Tab ONE (07:30)
--- NOTE | 2020-02-01 09:20 | CT ---
Date of Service: 02/01/20 Clinical Data: Left flank pain. UNENHANCED ABDOMEN AND PELVIC CT: Multislice acquisition through the abdomen and pelvis without IV or oral contrast was performed. Comparison is made to a prior exam dated 10/17/17. The lung bases are clear. The heart size is normal. There is diffuse fatty infiltration of the liver. No focal hepatic lesions. The gallbladder appears normal. No calcified gallstones. The spleen appears normal. The pancreas appears normal. The right and left adrenals appear normal. There are small nonobstructing renal calculi in both kidneys. There is a 2 mm distal uretal calculus on the left located at the ureterovesical junction. There is hydronephrosis and hydroureter proximal to it. There is a small amount of fluid within the bladder. There is bladder wall thickening. This is probably related to nondistention. Cystitis should be considered. No evidence of appendicitis. No free air. No free fluid. No dilated loops of bowel. No adenopathy. No aortic aneurysm. There is a fat containing umbilical hernia. There are bilateral fat containing inguinal hernias. No other significant findings. IMPRESSION: 2 mm distal ureteral calculus on left at ureterovesical junction with obstruction. Other findings as discussed above. [id number] [facility]
--- NOTE | 2020-02-01 15:22 | ER ---
HISTORY OF PRESENT ILLNESS: A 34-year-old male who comes in with his with complaints of left flank pain that started about 4:30 this morning. He states the pain is severe. He has not taken any pain medications at home because he cannot tolerate anti-inflammatory medications because of GI upset. The patient has not noticed any hematuria or dysuria. He states the pain is severe at 8-10/10. He has a history of kidney stones. He has had several episodes and feels this is another one. The patient has not been running a fever. He has not been coughing. OBJECTIVE: GENERAL APPEARANCE: The patient is awake and alert. He is uncomfortable. VITAL SIGNS: Reviewed. He is afebrile. Blood pressure 143/108, respirations 18. ABDOMEN: Soft. There is some tenderness in the left lower quadrant with palpation. Skin is warm and dry. There is no CVA tenderness with percussion. The area of pain seems to be in the lower left quadrant of the abdomen, but it does trace around the flank side. INITIAL TREATMENT: An IV was started. The patient was given 30 mg of Toradol. This brought the edge off his pain. We then added Dilaudid 1 mg and this made the patient comfortable. He still rated his pain at 4-5/10, but he is now resting comfortably. CT of the abdomen and pelvis shows a 3 mm distal ureteral stone on the left side with mild hydronephrosis. There is also some thickening of the bladder wall questioning a cystitis. Labs are still pending. DIAGNOSIS: Renal stone. TREATMENT PLAN: The patient will be given Percocet to go home on. Nursing staff will call me since it is the end of my shift when the labs are available and in case he has a UTI, I would add an antibiotic. The patient is to go home, push fluids, take his Percocet regularly today as needed and once the stone passes, everything should be fine. If his condition gets worse, he should follow up as needed. CRS/MODL /[id number]
== END 2020-02-01 07:50 | disposition home or self-care (01) ==
LOC: LB.ED 06:06
DX: N13.2 Hydronephrosis with renal and ureteral calculous obstruction (principal); Z87.442 Personal history of urinary calculi
CPT/HCPCS: 36415; 74176; 80053; 81001; 85025; 96374; 96375; 99284-25; A9270-GY; J1170; J1885

== ENCOUNTER 2020-03-26 20:25 | Emergency (ER) | payer OTHER ==
[2020-03-26] MEDS ORDERED: Sodium Chloride 0.9% 10 ML Syringe FLUSH PRN (20:30)
[2020-03-26] MEDS ORDERED: Ketorolac 60 MG/2 ML SDV IVPUSH ONE (20:35)
[2020-03-26] MEDS ORDERED: HYDROmorphone 2 MG/ML SDV IVPUSH ONE (20:49)
[2020-03-26] MEDS ORDERED: Ketorolac 30 MG/ML SDV ONE (20:50)
--- NOTE | 2020-03-26 20:55 | EDM.PDOC ---
ED HPI GENERAL MEDICAL PROBLEM - General Chief Complaint: General Stated Complaint: KIDNEY STONE Time Seen by Provider: 03/26/20 20:40 Source of Information: Reports: Patient History Limitations: Reports: No Limitations - History of Present Illness INITIAL COMMENTS - FREE TEXT/NARRATIVE: 34 year old male with PMH diabetes, kidney stones, hyperlipidemia with left flank/groin pain x 1 hour. He states that this is his typical kidney stone pain. Denies any fever, cough, CP, SOB, N/V/D, or abdominal pain. Onset: Today Quality: Reports: Same as Previous Episode Improves with: Reports: None Worsens with: Reports: None Associated Symptoms: Reports: No Other Symptoms Left Abdominal Pain Score (Numeric/FACES): 9 - Related Data Allergies Allergy/AdvReac Type Severity Reaction Status Date / Time No Known Allergies Allergy Verified 02/01/20 06:13 Home Meds: Home Meds Tamsulosin HCl [Flomax] 0.4 mg PO DAILY 4 Days #4 cap.er.24h 03/26/20 [Rx] Past Medical History HEENT History: Reports: Impaired Vision Cardiovascular History: Reports: Hypertension Genitourinary History: Reports: Renal Calculus Psychiatric History: Reports: Anxiety, Depression, PTSD Other Psychiatric History: PTSD Endocrine/Metabolic History: Reports: Other (See Below) Other Endocrine/Metabolic History: non-alcohol fatty liver Dx. - Infectious Disease History Infectious Disease History: Reports: Chicken Pox - Past Surgical History Respiratory Surgical History: Reports: Other (See Below) Other Respiratory Surgeries/Procedures: herniated diaphram history GI Surgical History: Reports: Other (See Below) Other GI Surgeries/Procedures: diaphram herniation Male Surgical History: Reports: Kidney Stone Extraction, Lithotripsy ([facility]) Other Endocrine Surgeries/Procedures: pre diabetic Social & Family History - Family History Family Medical History: No Pertinent Family History - Caffeine Use Caffeine Use: Reports: Energy Drinks - Living Situation & Occupation Living situation: Reports: Occupation: Employed ED ROS GENERAL - Review of Systems Review Of Systems: See Below Constitutional: Reports: No Symptoms HEENT: Reports: No Symptoms Respiratory: Reports: No Symptoms Cardiovascular: Reports: No Symptoms Endocrine: Reports: No Symptoms GI/Abdominal: Reports: No Symptoms : Reports: Flank Pain Musculoskeletal: Reports: No Symptoms Skin: Reports: No Symptoms Neurological: Reports: No Symptoms Psychiatric: Reports: No Symptoms Hematologic/Lymphatic: Reports: No Symptoms Immunologic: Reports: No Symptoms ED EXAM, GENERAL - Physical Exam Exam: See Below Exam Limited By: No Limitations General Appearance: Alert, No Apparent Distress Eye Exam: Bilateral Eye: Abnormal EOM Ears: Normal External Exam Throat/Mouth: Normal Voice Head: Atraumatic Neck: Full Range of Motion Respiratory/Chest: No Respiratory Distress, Lungs Clear, Normal Breath Sounds, No Accessory Muscle Use Cardiovascular: Normal Peripheral Pulses, Regular Rate, Rhythm GI/Abdominal: Normal Bowel Sounds, Non-Tender (Male) Exam: Testicular Tenderness (L) (reported with patient) Back Exam: Full Range of Motion Extremities: Normal Inspection Neurological: Alert, Oriented, Normal Gait, Normal Reflexes Psychiatric: Normal Affect, Normal Mood Skin Exam: Warm, Dry, Intact Lymphatic: No Adenopathy Course - Vital Signs Last Recorded V/S: Last Vital Signs Temp 96.9 F 03/26/20 20:28 Pulse 94 03/26/20 20:28 Resp 20 03/26/20 20:28 BP 159/103 H 03/26/20 20:28 Pulse Ox 97 03/26/20 20:28 - Orders/Labs/Meds Orders: Active Orders 24 hr Category Date Time Status Abdomen Pelvis wo Cont [CT] Stat Exams 03/26/20 21:02 Taken Labs: Laboratory Tests 03/26/20 03/26/20 Range/Units 19:55 20:35 POC Glucose 149 H (74-110) mg/dL Urine Color Yellow Urine Appearance Clear (CLEAR) Urine pH 5.0 (5.0-8.0) Ur Specific Sloan >= 1.030 (1.003-1.030) Urine Protein Negative (NEGATIVE) mg/dL Urine Glucose (UA) Negative (NEGATIVE) mg/dL Urine Ketones Negative (NEGATIVE) mg/dL Urine Occult Blood Moderate H (NEGATIVE) Urine Nitrite Negative (NEGATIVE) Urine Bilirubin Negative (NEGATIVE) Urine Urobilinogen 0.2 (0.2-1.0) E.U./dL Ur Leukocyte Esterase Negative (NEGATIVE) Urine RBC 5-10 H /HPF Urine WBC 0-5 H /HPF Ur Squamous Epith Cells Few /HPF Urine Mucus Moderate /HPF Meds: Medications Discontinued Medications Generic Name Dose Route Start Last Admin Trade Name Freq PRN Reason Stop Dose Admin Hydromorphone HCl 1 mg 03/26/20 20:49 03/26/20 21:01 Dilaudid IVPUSH 03/26/20 20:50 1 mg ONETIME ONE Administration Hydromorphone HCl Confirm 03/26/20 20:59 03/26/20 21:02 Dilaudid Administered 03/26/20 21:00 Not Given Dose 2 mg .ROUTE .STK-MED ONE Ketorolac Tromethamine 15 mg 03/26/20 20:35 03/26/20 20:42 Toradol IVPUSH 03/26/20 20:36 15 mg ONETIME ONE Administration Ketorolac Tromethamine Confirm 03/26/20 20:50 03/26/20 20:45 Toradol Administered 03/26/20 20:51 Not Given Dose 30 mg .ROUTE .STK-MED ONE Tamsulosin HCl 0.4 mg 03/26/20 21:01 03/26/20 21:08 Flomax PO 03/26/20 21:02 0.4 mg ONETIME ONE Administration Departure - Departure Time of Disposition: 21:45 Disposition: DC/Tfer to Court of Law En 21 Clinical Impression: Kidney calculi - Discharge Information *PRESCRIPTION DRUG MONITORING PROGRAM REVIEWED*: Not Applicable *COPY OF PRESCRIPTION DRUG MONITORING REPORT IN PATIENT NICK: Not Applicable Prescriptions: Tamsulosin HCl [Flomax] 0.4 mg PO DAILY 4 Days #4 cap.er.24h Instructions: Renal Colic, [id number], Kidney Stones, [id number] Referrals: PCP,None [Primary Care Provider] - Forms: ED Department Discharge Additional Instructions: Drink plenty of fluids. Take the percocet 1 tablet every 6 hours as needed for pain. Flomax once daily until the stone passes. Follow up with your primary doctor this week if the pain continues. Sepsis Event Note (ED) - Focused Exam Vital Signs: Vital Signs Temp Pulse Resp BP Pulse Ox 03/26/20 20:28 96.9 F 94 20 159/103 H 97 03/26/20 20:27 96.9 F 94 20 159/103 H 97 - My Orders Last 24 Hours: My Active Orders 03/26/20 21:02 Abdomen Pelvis wo Cont [CT] Stat - Assessment/Plan Last 24 Hours: My Active Orders 03/26/20 21:02 Abdomen Pelvis wo Cont [CT] Stat Assessment:: We discussed having another CT scan, last one was in January, patient would like to have one as now he states the pain started differently yhan his previous stones.
[2020-03-26 20:57] VITALS: BP 159/103; PULSE 94
[2020-03-26] MEDS ORDERED: HYDROmorphone 2 MG/ML SDV ONE (20:59)
[2020-03-26] MEDS ORDERED: Tamsulosin 0.4 MG Cap.ER PO ONE (21:01)
[2020-03-26] MEDS ORDERED: Acetaminophen/oxyCODONE 325-5 MG Tab ONE (21:50)
--- NOTE | 2020-03-27 08:18 | CT ---
Date of Service: 03/26/20 Clinical Data: left flank pain UNENHANCED ABDOMEN AND PELVIC CT: Multislice acquisition through the abdomen and pelvis without IV or oral contrast was performed. Comparison is made to a prior exam dated 02/01/20. The lung bases are clear. The liver, gallbladder, spleen, pancreas, and both adrenal glands are stable from the prior CT. There are small nonobstructing renal calculi bilaterally. There is a 2 mm distal ureteral calculus on the left located at the ureterovesical junction. There is hydronephrosis and hydroureter proximal to it consistent with obstruction. No hydronephrosis or hydroureter on the right. There is a small amount of fluid within the bladder. It appears normal. No free air. No free fluid. No dilated loops of bowel. No adenopathy. No aortic aneurysm. There is diverticulosis of the sigmoid colon. No evidence of diverticulitis. There is a fat-containing umbilical hernia. There are bilateral fat containing inguinal hernias. No other significant findings. IMPRESSION: 2 mm distal ureteral calculus on the left with obstruction. Other findings as discussed above. [id number] [facility]
== END 2020-03-26 21:55 | disposition home or self-care (01) ==
LOC: LB.ED 20:25
DX: N13.2 Hydronephrosis with renal and ureteral calculous obstruction (principal); E11.9 Type 2 diabetes mellitus without complications; I10 Essential (primary) hypertension; Z87.442 Personal history of urinary calculi
CPT/HCPCS: 74176; 81001; 82962; 96374; 96375; 99284; 99284-25; A9270-GY; J1170; J1885

== ENCOUNTER 2021-03-03 14:33 | Emergency (ER) | payer OTHER ==
[2021-03-03] MEDS: Sodium Chloride 0.9% 1,000 ML IV ONE (15:15)
[2021-03-03] MEDS: Ketorolac 60 MG/2 ML SDV IVPUSH ONE (15:15)
[2021-03-03] MEDS ORDERED: Acetaminophen/HYDROcodone 325-5 MG Tab ONE (15:30)
[2021-03-03] MEDS: HYDROmorphone 2 MG/ML SDV IVPUSH ONE (15:40)
[2021-03-03 15:48] LABS: HEMOGLOBIN A1C 6.7 % (< 5.7)
[2021-03-03] MEDS: Tamsulosin 0.4 MG Cap.ER ONE (17:43)
[2021-03-03] MEDS: HYDROmorphone 2 MG/ML SDV ONE (17:43)
[2021-03-03 18:04] VITALS: BP 156/110; PULSE 87
== END 2021-03-03 16:00 | disposition home or self-care (01) ==
LOC: LB.ED 14:33
DX: N13.2 Hydronephrosis with renal and ureteral calculous obstruction (principal); I10 Essential (primary) hypertension
CPT/HCPCS: 36415; 74176; 80048; 81003; 83036; 85025; 96374; 96375; 99284-25; A9270-GY; J1170; J1885; J7030

== ENCOUNTER 2021-09-10 19:09 | Emergency (ER) | payer OTHER ==
[2021-09-10 20:38] LABS: ESTIMATED GFR 80 mL/min (>60)
[2021-09-10 20:43] VITALS: BP 129/81; PULSE 116
[2021-09-10] MEDS: Acetaminophen 325 MG Tab PO ONE (20:48)
== END 2021-09-10 21:10 | disposition home or self-care (01) ==
LOC: LB.ED 19:09
DX: U07.1 COVID-19 (principal); E11.9 Type 2 diabetes mellitus without complications; I10 Essential (primary) hypertension
CPT/HCPCS: 36415; 80048; 81001; 82009; 82803; 82947; 83735; 84100; 85027; 87635; 99283; A9270; 99281; U0002

== ENCOUNTER 2022-07-11 16:26 | Emergency (ER) | payer OTHER ==
[2022-07-11] MEDS ORDERED: Ketorolac 60 MG/2 ML SDV IVPUSH ONE ×2 (17:08→17:20)
[2022-07-11] MEDS ORDERED: Ketorolac 30 MG/ML SDV ONE (17:08)
[2022-07-11 17:28] LABS: APPEARANCE,URINE CLEAR (CLEAR); BILIRUBIN,URINE SMALL (NEGATIVE); COLOR,URINE YELLOW; GLUCOSE,URINE 250 mg/dL (NEGATIVE); KETONES,URINE NEGATIVE (NEGATIVE); LEUKOCYTE ESTERASE,URINE NEGATIVE (NEGATIVE); NITRITE,URINE NEGATIVE (NEGATIVE); OCCULT BLOOD,URINE TRACE-LYSED (NEGATIVE); PROTEIN,URINE 30 mg/dL (NEGATIVE); UROBILINOGEN,URINE 0.2 E.U./dL (0.2-1.0)
[2022-07-11 17:34] LABS: SQUAMOUS EPITHELIAL CELLS,UR OCCASIONAL /HPF; WBC,URINE 0-5 /HPF
[2022-07-11] MEDS ORDERED: Sodium Chloride 0.9% 1,000 ML IV SCH (17:45)
[2022-07-11 18:03] VITALS: BP 122/95; PULSE 76
[2022-07-11] MEDS ORDERED: Morphine 4 MG/ML VIAL ONE (18:11)
[2022-07-11] MEDS ORDERED: Morphine 4 MG/ML VIAL IVPUSH ONE (18:13)
[2022-07-11] MEDS ORDERED: Ciprofloxacin 500 MG Tab ONE (18:45)
== END 2022-07-11 18:55 | disposition home or self-care (01) ==
LOC: LB.ED 16:26
DX: N13.2 Hydronephrosis with renal and ureteral calculous obstruction (principal); I10 Essential (primary) hypertension; E11.9 Type 2 diabetes mellitus without complications; F17.210 Nicotine dependence, cigarettes, uncomplicated; Z79.84 Long term (current) use of oral hypoglycemic drugs; Z79.899 Other long term (current) drug therapy
CPT/HCPCS: 74176; 81001; 96361; 96374; 96375; 99284; A9270; J1885; J2270; J7030

== ENCOUNTER 2023-05-15 21:03 | Emergency (ER) | payer OTHER ==
[2023-05-15 21:39] LABS: APPEARANCE,URINE CLEAR (CLEAR); BILIRUBIN,URINE NEGATIVE (NEGATIVE); COLOR,URINE YELLOW; GLUCOSE,URINE 500 mg/dL (NEGATIVE); KETONES,URINE 40 mg/dL (NEGATIVE); LEUKOCYTE ESTERASE,URINE NEGATIVE (NEGATIVE); NITRITE,URINE NEGATIVE (NEGATIVE); OCCULT BLOOD,URINE NEGATIVE (NEGATIVE); PROTEIN,URINE TRACE mg/dL (NEGATIVE); UROBILINOGEN,URINE 0.2 E.U./dL (0.2-1.0)
[2023-05-15] MEDS: Lactated Ringers 1,000 ML IV ONE (21:47)
[2023-05-15 21:50] LABS: BASOPHILS ABSOLUTE AUTO 0.05 K/uL (0.02-0.10); BASOPHILS PERCENT AUTO 0.4 % (0.0-0.5); EOSINOPHILS ABSOLUTE AUTO 0.17 K/uL (0.04-0.40); EOSINOPHILS PERCENT AUTO 1.5 % (1.0-5.0); HEMOGLOBIN 15.5 g/dL (13.0-18.0); MEAN CORPUSCULAR HEMOGLOBIN 32.6 pg (27.0-32.0); MEAN CORPUSCULAR HGB CONC 37.8 g/dL (31.0-35.0); MEAN CORPUSCULAR VOLUME 86 fL (76-96); MEAN PLATELET VOLUME 10.6 fL (6.0-10.0); MONOCYTES ABSOLUTE AUTO 1.25 K/uL (0.20-0.80); NEUTROPHILS ABSOLUTE AUTO 8.34 K/uL (2.00-7.50); NEUTROPHILS PERCENT AUTO 73.1 % (45.0-70.0); PLATELET COUNT,PLT 232 K/uL (150-400); RED BLOOD CELL COUNT 4.75 M/uL (4.50-6.50); RED CELL DISTRIBUTION WIDTH 12.9 % (11.0-16.0); WHITE BLOOD CELL COUNT,WBC 11.4 K/uL (4.0-11.0)
[2023-05-15 21:55] LABS: RBC,URINE NOT SEEN /HPF; SQUAMOUS EPITHELIAL CELLS,UR RARE /HPF; WBC,URINE NOT SEEN /HPF
[2023-05-15 22:03] LABS: MAGNESIUM 1.8 mg/dL (1.8-2.4); PHOSPHORUS 3.1 mg/dL (2.5-4.9)
[2023-05-15 22:05] LABS: ALBUMIN 3.6 g/dL (3.4-5.0); ANION GAP 26.1 mmol/L (5.0-15.0); BILIRUBIN TOTAL 1.5 mg/dL (0.0-1.0); CALCIUM 8.1 mg/dL (8.5-10.1); POTASSIUM,K 3.7 mmol/L (3.5-5.1)
[2023-05-15 22:12] LABS: CARBON DIOXIDE,CO2 12.6 mmol/L (21.0-32.0)
[2023-05-15] MEDS: NS + KCl 20mEq/L 1,000 ML IV SCH (22:45)
[2023-05-15] MEDS ORDERED: Ondansetron 4 MG Tab.DIS ONE (23:00)
[2023-05-15] MEDS ORDERED: metFORMIN 500 MG Tab ONE (23:00)
[2023-05-15] MEDS ORDERED: oxyCODONE 5 MG Tab ONE (23:00)
[2023-05-15 23:42] LABS: BASE EXCESS VENOUS -2.1 mm/L (-2-3); BICARBONATE,VENOUS 22.9 mmol/L (23.0-28.0); PCO2 VENOUS 38.1 mm/Hg (41-51); PH,VENOUS 7.39 (7.31-7.41)
[2023-05-15 23:47] LABS: ANION GAP 13.4 mmol/L (5.0-15.0); BUN/CREATININE RATIO 13.9 (6-25); CALCIUM 7.5 mg/dL (8.5-10.1); CARBON DIOXIDE,CO2 22.5 mmol/L (21.0-32.0); CREATININE 0.72 mg/dL (0.70-1.30); EST CRCL DRUG DOSING (CG) 148.16 mL/min; POTASSIUM,K 3.9 mmol/L (3.5-5.1)
[2023-05-16] MEDS ORDERED: 50% Dextrose in Water 50 ML Syringe IVPUSH PRN (00:06)
[2023-05-16] MEDS ORDERED: Glucagon,Human Recombinant 1 MG Vial IM PRN (00:06)
[2023-05-16] MEDS: Insulin Regular, Human 100 Units/ML 3 ML Vial IV ONE (00:10)
[2023-05-16] MEDS: Potassium Chloride 20 MEQ Tab.ER PO ONE (00:22)
[2023-05-16] MEDS: Morphine 4 MG/ML VIAL IVPUSH ONE (00:36)
[2023-05-16] MEDS: Lactated Ringers 1,000 ML IV ONE (00:46)
[2023-05-16] MEDS: Morphine 4 MG/ML VIAL ONE (00:47)
[2023-05-16 01:16] LABS: A/G RATIO 0.9 (0.8-2.0); ALBUMIN 3.3 g/dL (3.4-5.0); BILIRUBIN TOTAL 1.4 mg/dL (0.0-1.0); BUN/CREATININE RATIO 12.7 (6-25); CALCIUM 7.7 mg/dL (8.5-10.1); CARBON DIOXIDE,CO2 20.7 mmol/L (21.0-32.0); CREATININE 0.71 mg/dL (0.70-1.30); EST CRCL DRUG DOSING (CG) 150.25 mL/min; POTASSIUM,K 3.7 mmol/L (3.5-5.1); PROTEIN TOTAL,TP 6.9 g/dL (6.4-8.2)
[2023-05-16] MEDS ORDERED: oxyCODONE 5 MG Tab ONE (01:31)
[2023-05-16] MEDS ORDERED: metFORMIN 500 MG Tab ONE (01:42)
[2023-05-16 03:07] VITALS: BP 134/83; PULSE 82
[2023-05-19 16:12] LABS: BUN/CREATININE RATIO 22.6 (6-25); EST CRCL DRUG DOSING (CG) 201.27 mL/min
== END 2023-05-16 02:10 | disposition home or self-care (01) ==
LOC: LB.ED 21:03
DX: E11.10 Type 2 diabetes mellitus with ketoacidosis without coma (principal); I10 Essential (primary) hypertension; Z79.84 Long term (current) use of oral hypoglycemic drugs; Z79.899 Other long term (current) drug therapy
CPT/HCPCS: 36415; 80048; 80053; 81001; 82010; 82803; 82947; 83036; 83605; 83690; 83735; 84100; 84484; 85025; 93005; 96361; 96365; 96375; 99284; A9270; J2270; J3480; J7120; Q0162

== ENCOUNTER 2024-11-08 21:33 | Emergency (ER) | payer OTHER ==
[2024-11-08 23:11] LABS: BASOPHILS ABSOLUTE AUTO 0.02 K/uL (0.02-0.10); BASOPHILS PERCENT AUTO 0.2 % (0.0-0.5); EOSINOPHILS ABSOLUTE AUTO 0.18 K/uL (0.04-0.40); EOSINOPHILS PERCENT AUTO 2.1 % (1.0-5.0); LYMPHOCYTES ABSOLUTE AUTO 2.29 K/uL (1.50-4.00); LYMPHOCYTES PERCENT AUTO 26.6 % (20.0-40.0); MEAN PLATELET VOLUME 10.3 fL (6.0-10.0); MONOCYTES ABSOLUTE AUTO 0.89 K/uL (0.20-0.80); MONOCYTES PERCENT AUTO 10.3 % (3.0-10.0); NEUTROPHILS ABSOLUTE AUTO 5.24 K/uL (2.00-7.50); NEUTROPHILS PERCENT AUTO 60.8 % (45.0-70.0); PLATELET COUNT,PLT 231 K/uL (150-400); RED BLOOD CELL COUNT 4.84 M/uL (4.50-6.50); RED CELL DISTRIBUTION WIDTH 12.8 % (11.0-16.0); WHITE BLOOD CELL COUNT,WBC 8.6 K/uL (4.0-11.0)
[2024-11-08 23:15] LABS: AMPHETAMINES SCREEN, URINE NEGATIVE (NEGATIVE); METHADONE SCREEN, URINE NEGATIVE (NEGATIVE); METHAMPHETAMINES SCREEN, URINE NEGATIVE (NEGATIVE); OXYCODONE SCREEN,URINE NEGATIVE (NEGATIVE); THC SCREEN,URINE 50 NG/ML POSITIVE (NEGATIVE)
[2024-11-08 23:38] LABS: A/G RATIO 1.2 (0.8-2.0); ALANINE AMINOTRANSFERASE,ALT 47.0 U/L (12-78); ASPARTATE AMNIOTRANSFERASE,AST 22.0 U/L (15-37); BILIRUBIN TOTAL 1.6 mg/dL (0.0-1.0); BLOOD UREA NITROGEN,BUN 9.0 mg/dL (8-26); CARBON DIOXIDE,CO2 26.5 mmol/L (21.0-32.0); CHLORIDE,CL 105.0 mmol/L (98-107); CREATININE 0.94 mg/dL (0.70-1.30); EST CRCL DRUG DOSING (CG) 111.26 mL/min; ESTIMATED GFR 105.0 mL/min (>60); GLUCOSE RANDOM 109.0 mg/dL (74-100); POTASSIUM,K 3.4 mmol/L (3.5-5.1); PROTEIN TOTAL,TP 7.8 g/dL (6.4-8.2); SODIUM,NA 141.0 mmol/L (136-145); TSH ULTRASENSITIVE 2.686 uIU/mL (0.358-3.740)
[2024-11-08 23:44] LABS: APPEARANCE,URINE CLEAR (CLEAR); GLUCOSE,URINE NEGATIVE (NEGATIVE)
[2024-11-08 23:45] LABS: OCCULT BLOOD,URINE NEGATIVE (NEGATIVE)
[2024-11-09 02:17] VITALS: BP 142/88; PULSE 88
== END 2024-11-09 02:54 ==
LOC: LB.ED 21:33
DX: F32.A Depression, unspecified (principal); E11.9 Type 2 diabetes mellitus without complications; E78.5 Hyperlipidemia, unspecified
CPT/HCPCS: 36415; 71046; 80053; 80307; 81001; 84443; 85025; 93005; 99285; A0425; A0428

== ENCOUNTER 2024-11-17 08:21 | Emergency (ER) | payer OTHER ==
[2024-11-17 09:25] LABS: APPEARANCE,URINE SLIGHTLY CLOUDY (CLEAR); GLUCOSE,URINE NEGATIVE (NEGATIVE); OCCULT BLOOD,URINE LARGE (NEGATIVE)
[2024-11-17 09:35] LABS: EPITHELIAL CELLS,URINE OCCASIONAL /HPF
[2024-11-17] MEDS ORDERED: Sodium Chloride 0.9% 10 ML Syringe FLUSH PRN (09:40)
[2024-11-17] MEDS: Ketorolac 15 MG/ML SDV IVPUSH ONE (09:48)
[2024-11-17] MEDS: Ondansetron 4 MG/2 ML SDV IVPUSH ONE (09:49)
[2024-11-17 11:17] VITALS: BP 136/99; PULSE 87
== END 2024-11-17 11:10 | disposition home or self-care (01) ==
LOC: LB.ED 08:21
DX: N20.0 Calculus of kidney (principal); I10 Essential (primary) hypertension; J45.909 Unspecified asthma, uncomplicated; E11.9 Type 2 diabetes mellitus without complications; Z79.899 Other long term (current) drug therapy
CPT/HCPCS: 81001; 96374; 96375; 96376; 99284-25; A9270-GY; J1171; J1885; J2405

== ENCOUNTER 2024-11-17 17:34 | Emergency (ER) | payer OTHER ==
[2024-11-17 17:47] VITALS: PULSE 107
[2024-11-17 18:07] LABS: BASOPHILS ABSOLUTE AUTO 0.01 K/uL (0.02-0.10); BASOPHILS PERCENT AUTO 0.1 % (0.0-0.5); EOSINOPHILS ABSOLUTE AUTO 0.05 K/uL (0.04-0.40); EOSINOPHILS PERCENT AUTO 0.5 % (1.0-5.0); LYMPHOCYTES ABSOLUTE AUTO 0.95 K/uL (1.50-4.00); LYMPHOCYTES PERCENT AUTO 9.8 % (20.0-40.0); MEAN PLATELET VOLUME 10.6 fL (6.0-10.0); MONOCYTES ABSOLUTE AUTO 0.65 K/uL (0.20-0.80); MONOCYTES PERCENT AUTO 6.7 % (3.0-10.0); NEUTROPHILS ABSOLUTE AUTO 8.00 K/uL (2.00-7.50); NEUTROPHILS PERCENT AUTO 82.9 % (45.0-70.0); PLATELET COUNT,PLT 191 K/uL (150-400); RED BLOOD CELL COUNT 4.86 M/uL (4.50-6.50); RED CELL DISTRIBUTION WIDTH 12.7 % (11.0-16.0); WHITE BLOOD CELL COUNT,WBC 9.7 K/uL (4.0-11.0)
[2024-11-17 18:18] LABS: A/G RATIO 1.2 (0.8-2.0); ALANINE AMINOTRANSFERASE,ALT 41.0 U/L (12-78); ASPARTATE AMNIOTRANSFERASE,AST 18.0 U/L (15-37); BILIRUBIN TOTAL 1.4 mg/dL (0.0-1.0); BLOOD UREA NITROGEN,BUN 12.0 mg/dL (8-26); CARBON DIOXIDE,CO2 26.7 mmol/L (21.0-32.0); CHLORIDE,CL 103.0 mmol/L (98-107); CREATININE 1.4 mg/dL (0.70-1.30); EST CRCL DRUG DOSING (CG) 74.7 mL/min; ESTIMATED GFR 65.0 mL/min (>60); GLUCOSE RANDOM 163.0 mg/dL (74-100); POTASSIUM,K 4.4 mmol/L (3.5-5.1); PROTEIN TOTAL,TP 7.8 g/dL (6.4-8.2); SODIUM,NA 139.0 mmol/L (136-145)
[2024-11-17 18:29] VITALS: BP 145/99
[2024-11-17] MEDS ORDERED: Ondansetron 4 MG Tab.DIS ONE (18:30)
== END 2024-11-17 18:40 | disposition home or self-care (01) ==
LOC: LB.ED 17:34
DX: N20.0 Calculus of kidney (principal); N17.9 Acute kidney failure, unspecified; E86.0 Dehydration; I10 Essential (primary) hypertension; E11.9 Type 2 diabetes mellitus without complications; F17.210 Nicotine dependence, cigarettes, uncomplicated; Z79.899 Other long term (current) drug therapy
CPT/HCPCS: 36415; 80053; 85025; 99283; Q0162; 99284